=== PATIENT | male | born 1965 | race Caucasian/White ===

== ENCOUNTER 2018-03-14 15:39 | Emergency (ER) | payer MEDICAID ==
[~2018-03-14] VITALS: Ht 175.3 cm; Wt 88.0 kg
[2018-03-14 15:53] VITALS: BP 135/85
[2018-03-14 16:16] LABS: BASOPHILS # (AUTO) 0.1 X10'3 (0-0.2); BASOPHILS % (AUTO) 0.6 % (0-1); EOSINOPHILS # (AUTO) 0.4 X10'3 (0-0.9); EOSINOPHILS % (AUTO) 4.6 % (0-6); HEMATOCRIT 44.2 % (42.0-52.0); HEMOGLOBIN 15.2 g/dl (14.0-17.9); LYMPHOCYTES # (AUTO) 1.3 X10'3 (1.1-4.8); LYMPHOCYTES % (AUTO) 16.6 % (21-51); MEAN CORPUSCULAR HEMOGLOBIN 31.3 PG (27.0-31.0); MEAN CORPUSCULAR HGB CONC 34.4 % (33.0-36.5); MEAN PLATELET VOLUME 9.8 FL (7.4-10.4); MONOCYTES # (AUTO) 0.6 X10'3 (0-0.9); MONOCYTES % (AUTO) 7.7 % (2-12); NEUTROPHILS # (AUTO) 5.6 X10'3 (1.8-7.7); NEUTROPHILS % (AUTO) 70.5 % (42-75); PLATELET COUNT 228 X10'3 (140-440); RED BLOOD COUNT 4.86 X10'6 (4.70-6.10); RED CELL DISTRIBUTION WIDTH 13.6 % (11.5-14.5)
[2018-03-14 16:31] LABS: ALANINE AMINOTRANSFERASE 31 U/L (12-78); ALBUMIN 3.9 G/DL (3.4-5.0); ALBUMIN/GLOBULIN RATIO 1.1 (1.1-1.5); ALKALINE PHOSPHATASE 124 IU/L (46-116); ANION GAP 10 (8-16); ASPARTATE AMINO TRANSFERASE 13 U/L (10-37); BILIRUBIN,TOTAL 1.5 MG/DL (0.1-1.0); BLOOD UREA NITROGEN 16 MG/DL (7-18); BUN/CREATININE RATIO 12.9 (5.4-32.0); CHLORIDE 103 MMOL/L (99-107); CREATININE 1.24 MG/DL (0.60-1.10); GLUCOSE 109 MG/DL (70-104); POTASSIUM 4.2 MMOL/L (3.5-5.1); SODIUM 142 MMOL/L (135-145); TOTAL CARBON DIOXIDE 28.9 MMOL/L (24-32); TOTAL PROTEIN 7.4 G/DL (6.4-8.2); eGFR 61 ML/MIN
[2018-03-14 16:39] LABS: PARTIAL THROMBOPLASTIN TIME 27 SECONDS (22-32); PROTHROMBIN TIME 10.1 SECONDS (9.0-12.0)
[2018-03-14] MEDS ORDERED: furosemide 20MG tablet PO ONE (16:50)
== END 2018-03-14 17:20 | disposition home or self-care (01) ==
LOC: ER 15:40
DX: R06.02 Shortness of breath (principal); I25.2 Old myocardial infarction; Z86.73 Personal history of transient ischemic attack (TIA), and cerebral infarction without residual deficits; I50.9 Heart failure, unspecified; Z88.1 Allergy status to other antibiotic agents; Z88.5 Allergy status to narcotic agent
CPT/HCPCS: 36415; 71045; 80053; 83880; 84484; 85025; 85610; 85730; 93005; 99285

== ENCOUNTER 2020-03-04 14:07 | Emergency (ER) | payer MEDICAID ==
[~2020-03-04] VITALS: Ht 175.3 cm; Wt 90.9 kg
[2020-03-04 15:16] LABS: BASOPHILS # (AUTO) 0.1 X10'3 (0-0.2); EOSINOPHILS # (AUTO) 0.2 X10'3 (0-0.9); EOSINOPHILS % (AUTO) 3.4 % (0-6); HEMATOCRIT 42.2 % (42.0-52.0); HEMOGLOBIN 14.5 g/dl (14.0-17.9); LYMPHOCYTES # (AUTO) 1.5 X10'3 (1.1-4.8); LYMPHOCYTES % (AUTO) 23.4 % (21-51); MEAN CORPUSCULAR HEMOGLOBIN 31.8 PG (27.0-31.0); MEAN CORPUSCULAR HGB CONC 34.3 g/dL (33.0-36.5); MEAN CORPUSCULAR VOLUME 92.8 FL (78-98); MEAN PLATELET VOLUME 9.8 FL (7.4-10.4); MONOCYTES # (AUTO) 0.6 X10'3 (0-0.9); MONOCYTES % (AUTO) 8.8 % (2-12); NEUTROPHILS % (AUTO) 63.4 % (42-75); PLATELET COUNT 219 X10'3 (140-440); RED BLOOD COUNT 4.55 X10'6 (4.70-6.10); RED CELL DISTRIBUTION WIDTH 13.5 % (11.5-14.5); WHITE BLOOD COUNT 6.4 X10'3 (4.5-11.0)
[2020-03-04 15:26] LABS: PARTIAL THROMBOPLASTIN TIME 30 SECONDS (22-32)
[2020-03-04 15:28] LABS: ALANINE AMINOTRANSFERASE 39 U/L (12-78); ALBUMIN 3.9 G/DL (3.4-5.0); ALBUMIN/GLOBULIN RATIO 1.2 (1.1-1.5); ALKALINE PHOSPHATASE 115 IU/L (46-116); ANION GAP 9 (8-16); ASPARTATE AMINO TRANSFERASE 20 U/L (10-37); BILIRUBIN,TOTAL 0.9 MG/DL (0.1-1.0); BLOOD UREA NITROGEN 9 MG/DL (7-18); CHLORIDE 106 MMOL/L (99-107); CREATININE 1.13 MG/DL (0.60-1.10); GLUCOSE 116 MG/DL (70-104); POTASSIUM 4.1 MMOL/L (3.5-5.1); SODIUM 140 MMOL/L (135-145); TOTAL CARBON DIOXIDE 25.3 MMOL/L (24-32); TOTAL PROTEIN 7.1 G/DL (6.4-8.2); eGFR 68 ML/MIN
[2020-03-04 18:13] VITALS: BP 138/87
== END 2020-03-04 18:14 | disposition home or self-care (01) ==
LOC: ER 14:07
DX: R06.00 Dyspnea, unspecified (principal); G89.29 Other chronic pain; M54.9 Dorsalgia, unspecified; I50.9 Heart failure, unspecified; I25.2 Old myocardial infarction; E11.9 Type 2 diabetes mellitus without complications; Z59.0 Homelessness; Z86.73 Personal history of transient ischemic attack (TIA), and cerebral infarction without residual deficits; Z88.5 Allergy status to narcotic agent
CPT/HCPCS: 36415; 71045; 80053; 84484; 85025; 85610; 85730; 93005; 99285

== ENCOUNTER 2020-10-23 06:39 | Emergency (ER) | payer MEDICARE, MEDICAID ==
[~2020-10-23] VITALS: Ht 175.3 cm; Wt 90.9 kg
[2020-10-23] MEDS ORDERED: ibuprofen tablet 400 MG TABLET PO ONE (07:25)
[2020-10-23] MEDS ORDERED: BENZ-16 PO (08:14)
== END 2020-10-23 08:56 | disposition home or self-care (01) ==
LOC: ER 06:40
DX: R07.89 Other chest pain (principal); R05 Cough; R11.0 Nausea; R50.9 Fever, unspecified; Z20.822 Contact with and (suspected) exposure to COVID-19; I25.10 Atherosclerotic heart disease of native coronary artery without angina pectoris; I50.9 Heart failure, unspecified; I25.2 Old myocardial infarction; E11.9 Type 2 diabetes mellitus without complications; Z86.73 Personal history of transient ischemic attack (TIA), and cerebral infarction without residual deficits; Z59.0 Homelessness; Z88.1 Allergy status to other antibiotic agents; Z88.5 Allergy status to narcotic agent; Z79.899 Other long term (current) drug therapy
CPT/HCPCS: 36415; 71045; 87635; 93005; 99285

== ENCOUNTER 2021-08-12 21:30 | Emergency (ER) | payer MEDICARE, MEDICAID ==
[~2021-08-12] VITALS: Ht 175.3 cm; Wt 90.0 kg
[~2021-08-12 21:30] MED LIST: ASPI-1475 PO; ATOR-2 PO; BENZ-49 PO; ESCI20TA39 PO; GABA300C PO; LISI5TAB22 PO
[2021-08-12 23:20] LABS: BASOPHILS # (AUTO) 0.1 X10'3 (0-0.2); EOSINOPHILS # (AUTO) 0.1 X10'3 (0-0.9); HEMOGLOBIN 14.3 g/dl (14.0-17.9); MEAN CORPUSCULAR VOLUME 98.2 FL (78-98); NEUTROPHILS # (AUTO) 7.6 X10'3 (1.8-7.7); WHITE BLOOD COUNT 9.6 X10'3 (4.5-11.0)
[2021-08-12 23:21] LABS: BASOPHILS % (AUTO) 1.2 % (0-1); EOSINOPHILS % (AUTO) 0.8 % (0-6); HEMATOCRIT 43.3 % (42.0-52.0); LYMPHOCYTES # (AUTO) 0.8 X10'3 (1.1-4.8); LYMPHOCYTES % (AUTO) 8.3 % (21-51); MEAN CORPUSCULAR HEMOGLOBIN 32.5 PG (27.0-31.0); MEAN CORPUSCULAR HGB CONC 33.1 g/dL (33.0-36.5); MEAN PLATELET VOLUME 10.2 FL (7.4-10.4); MONOCYTES # (AUTO) 1.1 X10'3 (0-0.9); MONOCYTES % (AUTO) 11.3 % (2-12); NEUTROPHILS % (AUTO) 78.4 % (42-75); PLATELET COUNT 238 X10'3 (140-440); RED BLOOD COUNT 4.41 X10'6 (4.70-6.10); RED CELL DISTRIBUTION WIDTH 16.5 % (11.5-14.5)
[2021-08-12 23:45] LABS: PARTIAL THROMBOPLASTIN TIME 35 SECONDS (22-32)
[2021-08-12 23:55] LABS: ALANINE AMINOTRANSFERASE 267 U/L (12-78); ALKALINE PHOSPHATASE 167 IU/L (46-116); ANION GAP 13 (8-16); ASPARTATE AMINO TRANSFERASE 119 U/L (10-37); BILIRUBIN,DIRECT 0.7 MG/DL (0-0.3); BILIRUBIN,TOTAL 1.6 MG/DL (0.1-1.0); BLOOD UREA NITROGEN 33 MG/DL (7-18); BUN/CREATININE RATIO 19.2 (5.4-32.0); CALCIUM 8.4 MG/DL (8.5-10.1); CHLORIDE 102 MMOL/L (99-107); CREATININE 1.72 MG/DL (0.60-1.10); GLUCOSE 104 MG/DL (70-104); LIPASE < 50 U/L (73-393); POTASSIUM 3.9 MMOL/L (3.5-5.1); SODIUM 140 MMOL/L (135-145); TOTAL CARBON DIOXIDE 24.6 MMOL/L (24-32); eGFR 41 ML/MIN
[2021-08-13 00:47] VITALS: BP 101/69
[2021-08-13 03:30] LABS: CLARITY,URINE CLEAR (Clear); COLOR,URINE YELLOW (Yellow); GLUCOSE, URINE 250 mg/dl (Neg); KETONES,URINE NEGATIVE (Neg); LEUKOCYTE ESTERASE ,URINE NEGATIVE (Neg); NITRITES, URINE NEGATIVE (Neg); OCCULT BLOOD,URINE NEGATIVE (Neg); PROTEIN,URINE NEGATIVE (Neg)
[2021-08-13 03:32] LABS: UA COLLECTION TYPE CLN CATCH MIDSTREAM
[2021-08-13] MEDS ORDERED: HYDR-3965 PO (04:44)
[2021-08-13] MEDS ORDERED: AMOX-422 PO (04:44)
== END 2021-08-13 05:09 | disposition home or self-care (01) ==
LOC: ER 21:32
DX: K62.89 Other specified diseases of anus and rectum (principal); K64.4 Residual hemorrhoidal skin tags; I10 Essential (primary) hypertension; E78.00 Pure hypercholesterolemia, unspecified; I25.10 Atherosclerotic heart disease of native coronary artery without angina pectoris; I11.0 Hypertensive heart disease with heart failure; I50.9 Heart failure, unspecified; I25.2 Old myocardial infarction; E11.9 Type 2 diabetes mellitus without complications; Z86.72 Personal history of thrombophlebitis; F15.90 Other stimulant use, unspecified, uncomplicated; Z59.00 Homelessness unspecified; Z86.73 Personal history of transient ischemic attack (TIA), and cerebral infarction without residual deficits
CPT/HCPCS: 36415; 74176; 80048; 80076; 81003; 83690; 85025; 85610; 85730; 99284

== ENCOUNTER 2021-08-14 22:56 | Emergency (ER) | payer MEDICARE, MEDICAID ==
[~2021-08-14] VITALS: Ht 182.9 cm; Wt 101.1 kg
[~2021-08-14 22:56] MED LIST changes: +AMOX-422 PO; +HYDR-3965 PO
[2021-08-14] MEDS ORDERED: LORazepam 1 MG tablet PO ONE (23:50)
[2021-08-15 01:03] VITALS: BP 126/85
== END 2021-08-15 01:27 | disposition home or self-care (01) ==
LOC: ER 22:56
DX: F41.9 Anxiety disorder, unspecified (principal); K62.89 Other specified diseases of anus and rectum; I25.10 Atherosclerotic heart disease of native coronary artery without angina pectoris; I11.0 Hypertensive heart disease with heart failure; I50.9 Heart failure, unspecified; I25.2 Old myocardial infarction; E11.9 Type 2 diabetes mellitus without complications; E78.00 Pure hypercholesterolemia, unspecified; F15.90 Other stimulant use, unspecified, uncomplicated; Z86.73 Personal history of transient ischemic attack (TIA), and cerebral infarction without residual deficits; Z59.00 Homelessness unspecified; Z88.1 Allergy status to other antibiotic agents; Z88.5 Allergy status to narcotic agent; Z79.2 Long term (current) use of antibiotics; Z79.82 Long term (current) use of aspirin; Z79.899 Other long term (current) drug therapy
CPT/HCPCS: 99283

== ENCOUNTER 2021-08-17 03:37 | Emergency (ER) | payer MEDICARE, MEDICAID ==
[~2021-08-17] VITALS: Ht 177.8 cm; Wt 100.0 kg
[2021-08-17] MEDS ORDERED: cephalexin 250mg capsule PO ONE (03:50)
[2021-08-17 03:53] VITALS: BP 142/107
[2021-08-17] MEDS ORDERED: LORazepam 2 mg/ml vial IM ONE (03:55)
[2021-08-17] MEDS ORDERED: CEPH-585 PO (04:29)
[2021-08-18] MEDS ORDERED: TRAZ-256 PO (17:38)
[2021-08-18] MEDS ORDERED: LOSA25TA96 PO (17:38)
[2021-08-18] MEDS ORDERED: CARV6.253 PO (17:38)
== END 2021-08-17 05:48 | disposition home or self-care (01) ==
LOC: ER 03:38
DX: F41.9 Anxiety disorder, unspecified (principal); N45.4 Abscess of epididymis or testis; I11.0 Hypertensive heart disease with heart failure; I50.9 Heart failure, unspecified; I25.10 Atherosclerotic heart disease of native coronary artery without angina pectoris; E78.00 Pure hypercholesterolemia, unspecified; I25.2 Old myocardial infarction; E11.9 Type 2 diabetes mellitus without complications; F15.90 Other stimulant use, unspecified, uncomplicated; Z86.73 Personal history of transient ischemic attack (TIA), and cerebral infarction without residual deficits; Z59.00 Homelessness unspecified; Z88.2 Allergy status to sulfonamides; Z88.8 Allergy status to other drugs, medicaments and biological substances; Z79.82 Long term (current) use of aspirin; Z79.2 Long term (current) use of antibiotics; Z79.899 Other long term (current) drug therapy
CPT/HCPCS: 99283

== ENCOUNTER 2021-08-18 00:07 | Emergency (ER) | payer MEDICARE, MEDICAID ==
[~2021-08-18] VITALS: Ht 175.3 cm; Wt 99.0 kg
[~2021-08-18 00:07] MED LIST changes: +CEPH-585 PO
[2021-08-18 00:16] VITALS: BP 122/85
[2021-08-18] MEDS ORDERED: furosemide 10 MG/1 ML 10ml inj IV ONE (00:50)
[2021-08-18] MEDS ORDERED: furosemide 20MG tablet PO ONE (01:00)
[2021-08-18] MEDS ORDERED: TRAZ-256 PO (17:38)
[2021-08-18] MEDS ORDERED: LOSA25TA96 PO (17:38)
[2021-08-18] MEDS ORDERED: CARV6.253 PO (17:38)
== END 2021-08-18 01:29 | disposition home or self-care (01) ==
LOC: ER 00:07
DX: F41.9 Anxiety disorder, unspecified (principal); I25.10 Atherosclerotic heart disease of native coronary artery without angina pectoris; I11.0 Hypertensive heart disease with heart failure; I50.9 Heart failure, unspecified; E78.00 Pure hypercholesterolemia, unspecified; I25.2 Old myocardial infarction; F15.90 Other stimulant use, unspecified, uncomplicated; E11.9 Type 2 diabetes mellitus without complications; Z86.73 Personal history of transient ischemic attack (TIA), and cerebral infarction without residual deficits; Z59.00 Homelessness unspecified; Z88.1 Allergy status to other antibiotic agents; Z88.8 Allergy status to other drugs, medicaments and biological substances; Z79.2 Long term (current) use of antibiotics; Z79.899 Other long term (current) drug therapy
CPT/HCPCS: 99283

== ENCOUNTER 2021-08-18 14:10 | Inpatient (IN) | payer MEDICARE, MEDICAID ==
[~2021-08-18] VITALS: Ht 175.3 cm; Wt 100.0 kg
--- NOTE | 2021-08-18 14:39 | NUR ---
KEVEN (MADHAVI) [phone] PLEASE CALL WITH ANY UPDATES OR QUESTIONS
[2021-08-18] MEDS ORDERED: LORazepam 2 mg/ml vial IV ONE (14:55)
[2021-08-18 15:12] LABS: BASOPHILS # (AUTO) 0.1 X10'3 (0-0.2); EOSINOPHILS # (AUTO) 0.1 X10'3 (0-0.9); EOSINOPHILS % (AUTO) 0.6 % (0-6); LYMPHOCYTES # (AUTO) 1.1 X10'3 (1.1-4.8)
[2021-08-18 15:13] LABS: BASOPHILS % (AUTO) 0.8 % (0-1); HEMATOCRIT 47.9 % (42.0-52.0); HEMOGLOBIN 15.7 g/dl (14.0-17.9); LYMPHOCYTES % (AUTO) 10.1 % (21-51); MEAN CORPUSCULAR HEMOGLOBIN 31.7 PG (27.0-31.0); MEAN CORPUSCULAR HGB CONC 32.7 g/dL (33.0-36.5); MEAN CORPUSCULAR VOLUME 96.8 FL (78-98); MEAN PLATELET VOLUME 10.1 FL (7.4-10.4); MONOCYTES % (AUTO) 9.7 % (2-12); NEUTROPHILS # (AUTO) 8.5 X10'3 (1.8-7.7); NEUTROPHILS % (AUTO) 78.8 % (42-75); PLATELET COUNT 274 X10'3 (140-440); RED BLOOD COUNT 4.95 X10'6 (4.70-6.10); RED CELL DISTRIBUTION WIDTH 16.6 % (11.5-14.5); WHITE BLOOD COUNT 10.7 X10'3 (4.5-11.0)
[2021-08-18 15:23] LABS: PARTIAL THROMBOPLASTIN TIME 27 SECONDS (22-32)
[2021-08-18 15:25] LABS: ALANINE AMINOTRANSFERASE 144 U/L (12-78); ALBUMIN 3.6 G/DL (3.4-5.0); ALKALINE PHOSPHATASE 180 IU/L (46-116); ANION GAP 12 (8-16); ASPARTATE AMINO TRANSFERASE 47 U/L (10-37); BLOOD UREA NITROGEN 30 MG/DL (7-18); BUN/CREATININE RATIO 18.3 (5.4-32.0); CHLORIDE 98 MMOL/L (99-107); CREATININE 1.64 MG/DL (0.60-1.10); GLUCOSE 130 MG/DL (70-104); POTASSIUM 3.8 MMOL/L (3.5-5.1); SODIUM 135 MMOL/L (135-145); TOTAL CARBON DIOXIDE 25.1 MMOL/L (24-32); TOTAL PROTEIN 7.2 G/DL (6.4-8.2); eGFR 44 ML/MIN
[2021-08-18] MEDS ORDERED: LIDOcaine 2% 10ml TOPICAL JELLY (Urojet) TP ONE (16:10)
[2021-08-18] MEDS ORDERED: potassium Cl 20 mEq SR tablet PO PRN ×2 (16:25)
[2021-08-18] MEDS ORDERED: potassium CL 10mEq/100ml bag 100 ML IV PRN (16:25)
[2021-08-18] MEDS ORDERED: magnesium 4gm in 100ml NS 100 ML IV PRN (16:25)
[2021-08-18] MEDS ORDERED: PERFLUTREN PROTEIN-A MICROSPHR (Optison) 0.22 MG/ML 3ML VIAL IV ONE (16:25)
[2021-08-18] MEDS ORDERED: magnesium 2GM in 50ml NS 50 ML IV PRN (16:25)
[2021-08-18] MEDS ORDERED: ondansetron/PF 4mg/2ml inj IV PRN (16:25)
[2021-08-18] MEDS ORDERED: acetaminophen 325mg tablet PO PRN (16:25)
[2021-08-18] MEDS ORDERED: magnesium Cl slow-release 64mg tablet PO PRN (16:25)
--- NOTE | 2021-08-18 16:54 | NUR ---
PATIENT ASKED MULTIPLE TIMES TO STAY IN [facility] AND KEEP HOSPITAL GOWN ON. PATIENT UP FROM [facility], WALKING AROUND ROOM, IGNORING STAFFS REQUEST TO STAY IN BED OR CHAIR.
--- NOTE | 2021-08-18 17:21 | NUR ---
HOSPITALIST DR. SYED CALLED AND REQUESTED PAIN MED FOR PT. RECEIVED VO FOR MORPHINE 2 MG IV X1 NOW.
--- NOTE | 2021-08-18 17:28 | NUR ---
PTS SON FAHEEM CALLED AND LEFT CONTACT NUMBER:
[2021-08-18] MEDS ORDERED: morphine 2 MG/ML inj. syringe IV ONE (17:30)
[2021-08-18] MEDS: NYSTATIN CREAM - 30GM TUBE TP SCH (17:30)
[2021-08-18] MEDS ORDERED: CARV6.253 PO (17:38)
[2021-08-18] MEDS ORDERED: LOSA25TA96 PO (17:38)
[2021-08-18] MEDS ORDERED: TRAZ-256 PO (17:38)
[2021-08-18] MEDS: K and/or MAG REPLACEMENT MC SCH (19:41)
[2021-08-18] MEDS: furosemide 10 MG/1 ML 10ml inj IV SCH (19:55)
[2021-08-18] MEDS: heparin, porcine 5000 units/ml vial SQ SCH (19:58)
[2021-08-18] MEDS ORDERED: PERFLUTREN PROTEIN-A MICROSPHR (Optison) 0.22 MG/ML 3ML VIAL IV PRN (20:45)
--- NOTE | 2021-08-18 21:31 | NUR ---
ATTEMPTED TO GIVE REPORT. RN IS BUSY W/ MED PASS
--- NOTE | 2021-08-18 21:49 | NUR ---
REPORT HAS BEEN GIVEN
[2021-08-18 22:00] VITALS: BP 133/106
--- NOTE | 2021-08-18 22:10 | NUR ---
PT ARRIVED FROM ER TO ROOM 3024A. PT HAS BEEN ORIENTED TO THE ROOM. SKIN CHECKED DONE. CALL LIGHT GIVEN. VSS. RECEIVED REPORT FROM PENG FARRELL PRIOR TO PT'S ARRIVAL.
[2021-08-19 02:00] VITALS: BP 118/83
[2021-08-19 06:00] VITALS: BP 136/76
[2021-08-19 06:05] LABS: BASOPHILS # (AUTO) 0.1 X10'3 (0-0.2); EOSINOPHILS # (AUTO) 0.1 X10'3 (0-0.9); EOSINOPHILS % (AUTO) 1.1 % (0-6); HEMOGLOBIN 14.5 g/dl (14.0-17.9); WHITE BLOOD COUNT 9.5 X10'3 (4.5-11.0)
[2021-08-19 06:09] LABS: HEMATOCRIT 43.1 % (42.0-52.0); LYMPHOCYTES % (AUTO) 10.4 % (21-51); MEAN CORPUSCULAR HGB CONC 33.5 g/dL (33.0-36.5); MEAN CORPUSCULAR VOLUME 95.5 FL (78-98); MEAN PLATELET VOLUME 9.6 FL (7.4-10.4); MONOCYTES # (AUTO) 0.9 X10'3 (0-0.9); MONOCYTES % (AUTO) 9.3 % (2-12); NEUTROPHILS # (AUTO) 7.4 X10'3 (1.8-7.7); NEUTROPHILS % (AUTO) 78.2 % (42-75); PLATELET COUNT 215 X10'3 (140-440); RED BLOOD COUNT 4.51 X10'6 (4.70-6.10); RED CELL DISTRIBUTION WIDTH 16.2 % (11.5-14.5)
--- NOTE | 2021-08-19 06:15 | NUR ---
received report from ck cowart
--- NOTE | 2021-08-19 06:20 | NUR ---
Problems reprioritized. Patient report given, questions answered & plan of care reviewed with PENG COTTO.
[2021-08-19 06:31] LABS: ALBUMIN 2.8 G/DL (3.4-5.0); ANION GAP 10 (8-16); BLOOD UREA NITROGEN 29 MG/DL (7-18); BUN/CREATININE RATIO 20.6 (5.4-32.0); CALCIUM 8.8 MG/DL (8.5-10.1); CHLORIDE 107 MMOL/L (99-107); CHOL/HDL RATIO 5.3 (0.00-4.99); CHOLESTEROL 90 MG/DL (0-200); CREATININE 1.41 MG/DL (0.60-1.10); GLUCOSE 103 MG/DL (70-104); HDL CHOLESTEROL 17 MG/DL (35-60); LDL CHOLESTEROL 67 MG/DL (50-100); POTASSIUM 3.6 MMOL/L (3.5-5.1); SODIUM 142 MMOL/L (135-145); TRIGLYCERIDES 81 MG/DL (20-135); eGFR 52 ML/MIN
[2021-08-19 07:28] LABS: ANISOCYTOSIS 1+; LARGE PLATELETS FEW; PLATELET ESTIMATE NORMAL
[2021-08-19] MEDS: NYSTATIN CREAM - 30GM TUBE TP SCH (08:00)
[2021-08-19] MEDS: K and/or MAG REPLACEMENT MC SCH ×2 (08:00→20:00)
[2021-08-19] MEDS: heparin, porcine 5000 units/ml vial SQ SCH ×2 (08:14→21:37)
[2021-08-19] MEDS: furosemide 10 MG/1 ML 10ml inj IV SCH ×2 (08:17→21:36)
[2021-08-19] MEDS ORDERED: pneumococcal 23-VAL P-sac vacc 25 mcg/0.5ml vial IMVAC ONE (10:00)
[2021-08-19] MEDS ORDERED: FLU VACC QS2021-22(6MOS UP)/PF 60 MCG/0.5 ML SYRINGE IM ONE (10:00)
[2021-08-19 11:28] VITALS: BP 133/88
--- NOTE | 2021-08-19 12:33 | NUR ---
after complaining about having extreme anxiety and wanting to have someone help tx his anxiety, I called and obtained an order for po ativan, offered this ativan to pt and pt told me NO and that he is a recovering addict and that he is refusing to take medications for his anxiety, I educated pt about ativan and how it may help w/his anxiety and pt is still refusing medication specifically for his anxiety, continue to monitor pt
[2021-08-19 15:29] VITALS: BP 118/85
[2021-08-19 18:00] VITALS: BP 136/100
--- NOTE | 2021-08-19 18:13 | NUR ---
gave report to ck park
--- NOTE | 2021-08-19 18:20 | NUR ---
Patient in room PCU 3024. I have received report from Laine KHOURY and had the opportunity to ask questions and assume patient care.
[2021-08-19] MEDS: nystatin 15 GM powder TP SCH (21:37)
[2021-08-19] MEDS: gabapentin 300mg capsule PO SCH (21:37)
[2021-08-19] MEDS: atorvastatin 20mg tablet PO SCH (21:38)
[2021-08-19] MEDS: traZODone 50mg tablet PO SCH (21:38)
[2021-08-19] MEDS: LORazepam 1 MG tablet PO PRN (21:42)
[2021-08-19] MEDS: carvedilol 6.25mg tablet PO SCH (21:42)
[2021-08-19 22:00] VITALS: BP 130/102
--- NOTE | 2021-08-20 00:52 | NUR ---
During med pass earlier in shift, this nurse had open all meds and put into med cup and then accidently knocked med cup onto floor. Meds were retrieved and ativan was identified and wasted with the charge nurse. Had to pull all scheduled plus the ativan again.
[2021-08-20 02:00] VITALS: BP 121/74
--- NOTE | 2021-08-20 06:30 | NUR ---
Patient in room PCU 3024. I have received report from Camila KHOURY and had the opportunity to ask questions and assume patient care.
--- NOTE | 2021-08-20 06:30 | NUR ---
Problems reprioritized. Patient report given, questions answered & plan of care reviewed with Nikunj RN.
[2021-08-20 07:10] VITALS: BP 154/71
[2021-08-20] MEDS: K and/or MAG REPLACEMENT MC SCH ×2 (08:00→19:28)
[2021-08-20 08:07] LABS: BASOPHILS % (AUTO) 0.5 % (0-1); EOSINOPHILS # (AUTO) 0.1 X10'3 (0-0.9); EOSINOPHILS % (AUTO) 1.1 % (0-6); HEMATOCRIT 40.4 % (42.0-52.0); HEMOGLOBIN 13.5 g/dl (14.0-17.9); LYMPHOCYTES # (AUTO) 0.8 X10'3 (1.1-4.8); LYMPHOCYTES % (AUTO) 9.3 % (21-51); MEAN CORPUSCULAR HEMOGLOBIN 31.7 PG (27.0-31.0); MEAN CORPUSCULAR HGB CONC 33.3 g/dL (33.0-36.5); MEAN CORPUSCULAR VOLUME 95.2 FL (78-98); MEAN PLATELET VOLUME 9.9 FL (7.4-10.4); MONOCYTES # (AUTO) 0.8 X10'3 (0-0.9); MONOCYTES % (AUTO) 8.6 % (2-12); NEUTROPHILS # (AUTO) 7.3 X10'3 (1.8-7.7); NEUTROPHILS % (AUTO) 80.5 % (42-75); PLATELET COUNT 215 X10'3 (140-440); RED BLOOD COUNT 4.25 X10'6 (4.70-6.10); RED CELL DISTRIBUTION WIDTH 16.4 % (11.5-14.5)
[2021-08-20 08:15] LABS: ALBUMIN 2.6 G/DL (3.4-5.0); ANION GAP 11 (8-16); BLOOD UREA NITROGEN 30 MG/DL (7-18); BUN/CREATININE RATIO 19.9 (5.4-32.0); CALCIUM 8.5 MG/DL (8.5-10.1); CHLORIDE 107 MMOL/L (99-107); CREATININE 1.51 MG/DL (0.60-1.10); GLUCOSE 112 MG/DL (70-104); POTASSIUM 3.8 MMOL/L (3.5-5.1); SODIUM 144 MMOL/L (135-145); TOTAL CARBON DIOXIDE 25.8 MMOL/L (24-32); eGFR 48 ML/MIN
[2021-08-20] MEDS: aspirin 81mg, enteric-coated 1 TAB TABLET.DR PO SCH (08:57)
[2021-08-20] MEDS: gabapentin 300mg capsule PO SCH ×2 (08:57→20:45)
[2021-08-20] MEDS: losartan 25mg tablet PO SCH (08:57)
[2021-08-20] MEDS: LORazepam 1 MG tablet PO PRN ×2 (08:58→20:45)
[2021-08-20] MEDS: ESCITALOPRAM OXALATE 5 MG TABLET PO SCH (08:58)
[2021-08-20] MEDS: carvedilol 6.25mg tablet PO SCH ×2 (08:58→20:54)
[2021-08-20] MEDS: heparin, porcine 5000 units/ml vial SQ SCH ×2 (09:00→20:58)
[2021-08-20] MEDS: furosemide 10 MG/1 ML 10ml inj IV SCH ×2 (09:01→20:57)
[2021-08-20] MEDS: nystatin 15 GM powder TP SCH ×2 (09:07→20:58)
[2021-08-20] MEDS ORDERED: morphine 2 MG/ML inj. syringe IV ONE (10:35)
[2021-08-20] MEDS ORDERED: morphine 2 MG/ML inj. syringe IV PRN (10:40)
[2021-08-20] MEDS ORDERED: HYDROcodone/acetaminophen 5mg/325mg tablet PO PRN (10:40)
[2021-08-20 11:00] VITALS: BP 131/93
[2021-08-20 15:52] VITALS: BP 114/85
[2021-08-20 18:00] VITALS: BP 133/64
--- NOTE | 2021-08-20 18:27 | NUR ---
Problems reprioritized. Patient report given, questions answered & plan of care reviewed with Concepción KHOURY.
[2021-08-20] MEDS: traZODone 50mg tablet PO SCH (20:45)
[2021-08-20] MEDS: atorvastatin 20mg tablet PO SCH (20:46)
--- NOTE | 2021-08-21 05:30 | NUR ---
pt refused his vital signs from 2200 and 0200
[2021-08-21 05:52] LABS: BASOPHILS # (AUTO) 0.1 X10'3 (0-0.2); BASOPHILS % (AUTO) 1.2 % (0-1); EOSINOPHILS # (AUTO) 0.1 X10'3 (0-0.9); EOSINOPHILS % (AUTO) 1.4 % (0-6); HEMATOCRIT 40.6 % (42.0-52.0); HEMOGLOBIN 13.2 g/dl (14.0-17.9); LYMPHOCYTES # (AUTO) 0.5 X10'3 (1.1-4.8); LYMPHOCYTES % (AUTO) 7.7 % (21-51); MEAN CORPUSCULAR HGB CONC 32.5 g/dL (33.0-36.5); MEAN CORPUSCULAR VOLUME 95.5 FL (78-98); MEAN PLATELET VOLUME 10.2 FL (7.4-10.4); MONOCYTES # (AUTO) 0.6 X10'3 (0-0.9); MONOCYTES % (AUTO) 8.8 % (2-12); NEUTROPHILS # (AUTO) 5.3 X10'3 (1.8-7.7); NEUTROPHILS % (AUTO) 80.9 % (42-75); PLATELET COUNT 199 X10'3 (140-440); RED BLOOD COUNT 4.25 X10'6 (4.70-6.10); RED CELL DISTRIBUTION WIDTH 15.9 % (11.5-14.5); WHITE BLOOD COUNT 6.6 X10'3 (4.5-11.0)
[2021-08-21 06:00] VITALS: BP 114/84
[2021-08-21 06:05] LABS: ALBUMIN 2.5 G/DL (3.4-5.0); ANION GAP 8 (8-16); BLOOD UREA NITROGEN 31 MG/DL (7-18); BUN/CREATININE RATIO 21.7 (5.4-32.0); CALCIUM 8.3 MG/DL (8.5-10.1); CHLORIDE 106 MMOL/L (99-107); CREATININE 1.43 MG/DL (0.60-1.10); GLUCOSE 107 MG/DL (70-104); POTASSIUM 3.9 MMOL/L (3.5-5.1); SODIUM 140 MMOL/L (135-145); TOTAL CARBON DIOXIDE 26.1 MMOL/L (24-32); eGFR 51 ML/MIN
--- NOTE | 2021-08-21 07:27 | NUR ---
Patient in room PCU 3024. I have received report from PENG Beebe and had the opportunity to ask questions and assume patient care.
[2021-08-21] MEDS: K and/or MAG REPLACEMENT MC SCH ×2 (08:00→19:39)
[2021-08-21] MEDS: ESCITALOPRAM OXALATE 5 MG TABLET PO SCH (08:05)
[2021-08-21] MEDS: nystatin 15 GM powder TP SCH ×2 (08:05→23:21)
[2021-08-21] MEDS: gabapentin 300mg capsule PO SCH ×2 (08:05→23:18)
[2021-08-21] MEDS: losartan 25mg tablet PO SCH (08:06)
[2021-08-21] MEDS: aspirin 81mg, enteric-coated 1 TAB TABLET.DR PO SCH (08:06)
[2021-08-21] MEDS: heparin, porcine 5000 units/ml vial SQ SCH ×2 (08:07→23:17)
[2021-08-21] MEDS: furosemide 10 MG/1 ML 10ml inj IV SCH ×2 (08:09→23:17)
[2021-08-21] MEDS: carvedilol 6.25mg tablet PO SCH ×2 (08:13→23:18)
[2021-08-21 11:00] VITALS: BP 117/75
[2021-08-21 15:00] VITALS: BP 147/87
[2021-08-21] MEDS: LORazepam 1 MG tablet PO PRN (16:55)
[2021-08-21 18:00] VITALS: BP 128/91
[2021-08-21 20:33] LABS: ALANINE AMINOTRANSFERASE 62 U/L (12-78); ALBUMIN 2.5 G/DL (3.4-5.0); ALBUMIN/GLOBULIN RATIO 0.9 (1.1-1.5); ALKALINE PHOSPHATASE 119 IU/L (46-116); ANION GAP 6 (8-16); ASPARTATE AMINO TRANSFERASE 17 U/L (10-37); BILIRUBIN,TOTAL 1.7 MG/DL (0.1-1.0); BLOOD UREA NITROGEN 34 MG/DL (7-18); CALCIUM 8.4 MG/DL (8.5-10.1); CHLORIDE 104 MMOL/L (99-107); CREATININE 1.48 MG/DL (0.60-1.10); GLUCOSE 102 MG/DL (70-104); SODIUM 139 MMOL/L (135-145); TOTAL CARBON DIOXIDE 28.6 MMOL/L (24-32); TOTAL PROTEIN 5.4 G/DL (6.4-8.2); eGFR 49 ML/MIN
[2021-08-21 22:00] VITALS: BP 132/92
[2021-08-21] MEDS: traZODone 50mg tablet PO SCH (23:18)
[2021-08-21] MEDS: atorvastatin 20mg tablet PO SCH (23:19)
[2021-08-22 02:00] VITALS: BP 99/65
[2021-08-22 06:00] VITALS: BP 110/78
[2021-08-22 07:43] LABS: BASOPHILS # (AUTO) 0.1 X10'3 (0-0.2); BASOPHILS % (AUTO) 0.7 % (0-1); EOSINOPHILS # (AUTO) 0.1 X10'3 (0-0.9); EOSINOPHILS % (AUTO) 0.9 % (0-6); HEMATOCRIT 42.6 % (42.0-52.0); LYMPHOCYTES # (AUTO) 0.7 X10'3 (1.1-4.8); LYMPHOCYTES % (AUTO) 6.2 % (21-51); MEAN CORPUSCULAR HEMOGLOBIN 31.6 PG (27.0-31.0); MEAN CORPUSCULAR HGB CONC 32.9 g/dL (33.0-36.5); MEAN CORPUSCULAR VOLUME 96.3 FL (78-98); MEAN PLATELET VOLUME 10.4 FL (7.4-10.4); MONOCYTES # (AUTO) 1.1 X10'3 (0-0.9); MONOCYTES % (AUTO) 10.6 % (2-12); NEUTROPHILS # (AUTO) 8.7 X10'3 (1.8-7.7); NEUTROPHILS % (AUTO) 81.6 % (42-75); PLATELET COUNT 204 X10'3 (140-440); RED BLOOD COUNT 4.43 X10'6 (4.70-6.10); RED CELL DISTRIBUTION WIDTH 16.6 % (11.5-14.5); WHITE BLOOD COUNT 10.7 X10'3 (4.5-11.0)
[2021-08-22] MEDS: K and/or MAG REPLACEMENT MC SCH (08:00)
[2021-08-22] MEDS: ESCITALOPRAM OXALATE 5 MG TABLET PO SCH (08:01)
[2021-08-22] MEDS: nystatin 15 GM powder TP SCH (08:01)
[2021-08-22 08:02] VITALS: BP_SYST 110
[2021-08-22] MEDS: losartan 25mg tablet PO SCH (08:02)
[2021-08-22] MEDS: aspirin 81mg, enteric-coated 1 TAB TABLET.DR PO SCH (08:02)
[2021-08-22 08:03] LABS: ALBUMIN 2.7 G/DL (3.4-5.0); ANION GAP 8 (8-16); BLOOD UREA NITROGEN 34 MG/DL (7-18); BUN/CREATININE RATIO 22.5 (5.4-32.0); CALCIUM 8.6 MG/DL (8.5-10.1); CHLORIDE 104 MMOL/L (99-107); CREATININE 1.51 MG/DL (0.60-1.10); GLUCOSE 108 MG/DL (70-104); MAGNESIUM 2.2 MG/DL (1.5-2.4); POTASSIUM 4.2 MMOL/L (3.5-5.1); SODIUM 139 MMOL/L (135-145); TOTAL CARBON DIOXIDE 26.7 MMOL/L (24-32); eGFR 48 ML/MIN
[2021-08-22] MEDS: heparin, porcine 5000 units/ml vial SQ SCH (08:03)
[2021-08-22] MEDS: carvedilol 6.25mg tablet PO SCH (08:04)
[2021-08-22] MEDS: gabapentin 300mg capsule PO SCH (08:05)
[2021-08-22] MEDS: furosemide 10 MG/1 ML 10ml inj IV SCH (08:35)
[2021-08-22] MEDS ORDERED: FURO20TA4 PO (10:16)
--- NOTE | 2021-08-22 12:30 | NUR ---
Patient discharge home. Instructions given and read back. Alert and orient. Belonging carried by patient and family. Prescriptions order was sent to the [facility]. 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
== END 2021-08-22 13:40 | disposition home or self-care (01) | DRG 291 ==
LOC: ER 14:11 → ED HOLD 16:24 → PCU 3S 22:05
PROVIDERS: ADMIT Internal Medicine; ATTEND Internal Medicine
DX: I11.0 Hypertensive heart disease with heart failure (principal); I50.23 Acute on chronic systolic (congestive) heart failure; R45.851 Suicidal ideations; N17.9 Acute kidney failure, unspecified; F15.10 Other stimulant abuse, uncomplicated; G47.00 Insomnia, unspecified; F17.210 Nicotine dependence, cigarettes, uncomplicated; F41.0 Panic disorder [episodic paroxysmal anxiety]; I42.7 Cardiomyopathy due to drug and external agent; R74.01 Elevation of levels of liver transaminase levels; R21 Rash and other nonspecific skin eruption; M75.31 Calcific tendinitis of right shoulder; D64.9 Anemia, unspecified; F41.9 Anxiety disorder, unspecified; F32.A Depression, unspecified; E11.9 Type 2 diabetes mellitus without complications; E78.00 Pure hypercholesterolemia, unspecified; I25.10 Atherosclerotic heart disease of native coronary artery without angina pectoris; Z86.73 Personal history of transient ischemic attack (TIA), and cerebral infarction without residual deficits; I25.2 Old myocardial infarction; Z88.1 Allergy status to other antibiotic agents; Z88.5 Allergy status to narcotic agent; Z79.899 Other long term (current) drug therapy; Z79.82 Long term (current) use of aspirin; Z59.00 Homelessness unspecified
CPT/HCPCS: 36415; 71045; 71100; 73030; 76700; 80048; 80053; 80061; 83735; 83880; 84484; 85008; 85025; 85610; 85651; 85730; 87081; 90732; 93005; 93306; 96374; 96375; 99283; 99285; G0378; J1644; J1940; J2060; J2270

== ENCOUNTER 2021-08-28 03:15 | Emergency (ER) | payer MEDICARE, MEDICAID ==
[~2021-08-28] VITALS: Ht 175.3 cm; Wt 98.6 kg
[~2021-08-28 03:15] MED LIST changes: -AMOX-422 PO; -BENZ-49 PO; +CARV6.253 PO; -CEPH-585 PO; +FURO20TA4 PO; -HYDR-3965 PO; -LISI5TAB22 PO; +LOSA25TA96 PO; +TRAZ-256 PO
[2021-08-28 05:19] VITALS: BP 117/85
== END 2021-08-28 05:45 | disposition home or self-care (01) ==
LOC: ER 03:16
DX: F41.9 Anxiety disorder, unspecified (principal); I25.10 Atherosclerotic heart disease of native coronary artery without angina pectoris; I11.0 Hypertensive heart disease with heart failure; I50.9 Heart failure, unspecified; E78.00 Pure hypercholesterolemia, unspecified; I25.2 Old myocardial infarction; E11.9 Type 2 diabetes mellitus without complications; F15.90 Other stimulant use, unspecified, uncomplicated; Z86.73 Personal history of transient ischemic attack (TIA), and cerebral infarction without residual deficits; Z59.00 Homelessness unspecified; Z88.1 Allergy status to other antibiotic agents; Z88.5 Allergy status to narcotic agent; Z79.82 Long term (current) use of aspirin; Z79.899 Other long term (current) drug therapy
CPT/HCPCS: 99281

== ENCOUNTER 2021-08-28 10:34 | Emergency (ER) | payer MEDICARE, MEDICAID ==
[~2021-08-28] VITALS: Ht 175.3 cm; Wt 98.6 kg
[2021-08-28 11:45] VITALS: BP 155/107
--- NOTE | 2021-08-28 16:29 | NUR ---
Patient c/o uncontrollable anxiety and he can't sleep. Patient '[place] I [place] get some [place]. I had a panic attack last night until I got here. I can breath when I'm here. States he was at [facility] and ready to go into surgery and he was so anxious he stopped pre-op and left. Patient has HX of CHF. MAEVE Lau talking to patient about following up with [facility] walk-in on [facility] for group home care. Patient also advised needs a counselor. Patient was a group home drug addict and is recently clean. to give patient medication for sleep. Continue to monitor.
[2021-08-28] MEDS ORDERED: quetiapine 100mg tablet PO STA (16:41)
[2021-08-28] MEDS ORDERED: LORazepam 1 MG tablet PO ONE (16:45)
== END 2021-08-28 17:17 | disposition home or self-care (01) ==
LOC: ER 10:35
DX: F41.0 Panic disorder [episodic paroxysmal anxiety] (principal); F51.04 Psychophysiologic insomnia; I25.10 Atherosclerotic heart disease of native coronary artery without angina pectoris; I11.0 Hypertensive heart disease with heart failure; I50.9 Heart failure, unspecified; E78.00 Pure hypercholesterolemia, unspecified; I25.2 Old myocardial infarction; E11.9 Type 2 diabetes mellitus without complications; F15.90 Other stimulant use, unspecified, uncomplicated; Z86.73 Personal history of transient ischemic attack (TIA), and cerebral infarction without residual deficits; Z59.00 Homelessness unspecified; Z88.5 Allergy status to narcotic agent; Z88.1 Allergy status to other antibiotic agents; Z79.82 Long term (current) use of aspirin; Z79.899 Other long term (current) drug therapy
CPT/HCPCS: 99283

== ENCOUNTER 2021-09-04 03:57 | Inpatient (IN) | payer MEDICARE, MEDICAID ==
[~2021-09-04] VITALS: Ht 175.3 cm; Wt 98.6 kg
[2021-09-04 04:19] VITALS: BP 138/91
[2021-09-04 04:59] LABS: BASOPHILS # (AUTO) 0.1 X10'3 (0-0.2); EOSINOPHILS # (AUTO) 0.1 X10'3 (0-0.9); EOSINOPHILS % (AUTO) 1.6 % (0-6); HEMATOCRIT 41.7 % (42.0-52.0); HEMOGLOBIN 13.4 g/dl (14.0-17.9); LYMPHOCYTES % (AUTO) 11.1 % (21-51); MEAN CORPUSCULAR HEMOGLOBIN 30.8 PG (27.0-31.0); MEAN CORPUSCULAR HGB CONC 32.2 g/dL (33.0-36.5); MEAN CORPUSCULAR VOLUME 95.5 FL (78-98); MEAN PLATELET VOLUME 9.9 FL (7.4-10.4); MONOCYTES # (AUTO) 0.7 X10'3 (0-0.9); MONOCYTES % (AUTO) 7.2 % (2-12); NEUTROPHILS # (AUTO) 7.4 X10'3 (1.8-7.7); NEUTROPHILS % (AUTO) 79.1 % (42-75); PLATELET COUNT 288 X10'3 (140-440); RED BLOOD COUNT 4.37 X10'6 (4.70-6.10); RED CELL DISTRIBUTION WIDTH 17.3 % (11.5-14.5); WHITE BLOOD COUNT 9.4 X10'3 (4.5-11.0)
[2021-09-04 05:13] LABS: ALANINE AMINOTRANSFERASE 58 U/L (12-78); ALBUMIN 2.8 G/DL (3.4-5.0); ALBUMIN/GLOBULIN RATIO 0.8 (1.1-1.5); ALKALINE PHOSPHATASE 144 IU/L (46-116); ANION GAP 10 (8-16); ASPARTATE AMINO TRANSFERASE 33 U/L (10-37); BILIRUBIN,TOTAL 1.8 MG/DL (0.1-1.0); BLOOD UREA NITROGEN 16 MG/DL (7-18); BUN/CREATININE RATIO 12.3 (5.4-32.0); CALCIUM 8.6 MG/DL (8.5-10.1); CHLORIDE 102 MMOL/L (99-107); GLUCOSE 113 MG/DL (70-104); POTASSIUM 3.9 MMOL/L (3.5-5.1); SODIUM 135 MMOL/L (135-145); TOTAL CARBON DIOXIDE 23.2 MMOL/L (24-32); TOTAL PROTEIN 6.1 G/DL (6.4-8.2); eGFR 57 ML/MIN
[2021-09-04] MEDS ORDERED: furosemide 10 MG/1 ML 10ml inj IV ONE (05:45)
[2021-09-04] MEDS ORDERED: magnesium hydroxide 30ml (MOM) UD suspension PO PRN (07:35)
[2021-09-04] MEDS ORDERED: ondansetron/PF 4mg/2ml inj IV PRN (07:35)
[2021-09-04] MEDS ORDERED: morphine 2 MG/ML inj. syringe IV PRN ×2 (07:35)
[2021-09-04] MEDS ORDERED: magnesium Cl slow-release 64mg tablet PO PRN (07:35)
[2021-09-04] MEDS ORDERED: acetaminophen 325mg tablet PO PRN (07:35)
[2021-09-04] MEDS ORDERED: magnesium 2GM in 50ml NS 50 ML IV PRN (07:35)
[2021-09-04] MEDS ORDERED: potassium Cl 20 mEq SR tablet PO PRN ×2 (07:35)
[2021-09-04] MEDS ORDERED: potassium CL 10mEq/100ml bag 100 ML IV PRN (07:35)
[2021-09-04] MEDS ORDERED: magnesium 4gm in 100ml NS 100 ML IV PRN (07:35)
[2021-09-04] MEDS ORDERED: mag hydrox/Alum hydrox/simeth 30ml oral suspension PO PRN (07:35)
[2021-09-04] MEDS ORDERED: carVEDilol 3.125mg tablet PO SCH (07:45)
[2021-09-04] MEDS ORDERED: K and/or MAG REPLACEMENT MC SCH (08:00)
[2021-09-04] MEDS ORDERED: docusate sod 100mg capsule PO SCH (08:00)
--- NOTE | 2021-09-04 08:01 | NUR ---
ASSUMED CARE OF PT. PT PACING IN ROOM, CRYING STATING "IM SICK OF THIS PAIN". I ASKED PT TO RETURN TO BED, AND EXPLAINED THE PLAN OF CARE. PT LEGS ELEVATED TO PROVIDE PAIN RELIEF. IV STARTED AND LAXIS ADMINISTERED. PT DECLINED NARCOTIC PAIN MEDS PER RECOVERING DRUG USER. WILL ADMINISTER PO TYLENOL FOR PAIN CONTROL
[2021-09-04] MEDS ORDERED: carvedilol 6.25mg tablet PO ONE (08:26)
[2021-09-04 09:28] LABS: ETHANOL < 0.010 GM/DL (0.0-0.010)
[2021-09-04 10:07] LABS: URINE AMPHETAMINE SCREEN NEGATIVE (Neg); URINE BARBITUATE SCREEN NEGATIVE (Neg); URINE BENZODIAZEPINES SCREEN NEGATIVE (Neg); URINE CANNABINOID SCREEN NEGATIVE (Neg); URINE COCAINE SCREEN NEGATIVE (Neg); URINE METHADONE SCREEN NEGATIVE (Neg); URINE OPIATE SCREEN NEGATIVE (Neg); URINE PHENCYCLIDINE SCREEN NEGATIVE (Neg)
[2021-09-04] MEDS ORDERED: LORazepam 2 mg/ml vial IV ONE (10:30)
[2021-09-04] MEDS ORDERED: OLANZapine 5mg rapidly disint. tablet PO ONE (10:35)
--- NOTE | 2021-09-04 12:02 | NUR ---
PT PULLED IV NEEDLE, STATED "I WANT TO LEAVE, I DONT WANT TO BE HERE ANYMORE. JUST GIVE ME MY DC PAPERS". i EXPLAINED THAT THERE ARE NO DC PAPERS BECAUSE HE WAS ADMITTED AND LEAING THE HOSPITAL IS AGAINST MEDICAL ADVICE. PT STATED "I DONT CARE, I WANT TO GO." ER MD NOTIFIED, CHARGE NOTIFIED, HOSPITALIST NOTIFIED.
--- NOTE | 2021-09-04 12:15 | NUR ---
SPOKE W/ DR. RODRIGUEZ AND MADE HER AWARE OF PT WANTING TO LEAVE. MD STATED SHE WILL COME DOWN AND TALK TO THE PT AND TO PLEASE ASK PT TO WAIT. PT NOTIFIED THAT MD WANTS TO TALK WITH HIM AND IF HE CAN WAIT. PT RESPONDED "FINE, JUST HURRY. I WANT TO GO."
[2021-09-04] MEDS ORDERED: FURO40TA4 PO (12:22)
[2021-09-04] MEDS ORDERED: SPIR25TA PO (12:22)
[2021-09-04] MEDS ORDERED: RIVA20TA PO (12:22)
--- NOTE | 2021-09-04 12:55 | NUR ---
PT NOT IN ROOM. LEFT AMA
== END 2021-09-04 13:41 | disposition left against medical advice (07) | DRG 293 ==
LOC: ER 03:57 → ED HOLD 07:37
PROVIDERS: ADMIT Internal Medicine; ATTEND Internal Medicine
DX: I11.0 Hypertensive heart disease with heart failure (principal); M79.604 Pain in right leg; E11.9 Type 2 diabetes mellitus without complications; E78.00 Pure hypercholesterolemia, unspecified; M79.605 Pain in left leg; R00.0 Tachycardia, unspecified; F15.90 Other stimulant use, unspecified, uncomplicated; F41.9 Anxiety disorder, unspecified; Z53.29 Procedure and treatment not carried out because of patient's decision for other reasons; I25.10 Atherosclerotic heart disease of native coronary artery without angina pectoris; F17.200 Nicotine dependence, unspecified, uncomplicated; I45.9 Conduction disorder, unspecified; I50.9 Heart failure, unspecified; Z86.73 Personal history of transient ischemic attack (TIA), and cerebral infarction without residual deficits; I25.2 Old myocardial infarction; Z59.00 Homelessness unspecified; Z88.5 Allergy status to narcotic agent; Z88.8 Allergy status to other drugs, medicaments and biological substances
CPT/HCPCS: 36415; 80053; 80305; 80320; 83735; 83880; 84484; 85025; 93005; 96374; 99285; G0378; J1940; J2060

== ENCOUNTER 2021-09-19 10:54 | Emergency (ER) | payer MEDICARE, MEDICAID ==
[~2021-09-19] VITALS: Ht 175.3 cm; Wt 98.0 kg
[~2021-09-19 10:54] MED LIST changes: -ESCI20TA39 PO; -FURO20TA4 PO; +FURO40TA4 PO; -GABA300C PO; +RIVA20TA PO; +SPIR25TA PO
[2021-09-19 11:10] VITALS: BP 125/91
[2021-09-19 12:05] LABS: BASOPHILS # (AUTO) 0.1 X10'3 (0-0.2); EOSINOPHILS # (AUTO) 0.1 X10'3 (0-0.9); EOSINOPHILS % (AUTO) 1.9 % (0-6); HEMATOCRIT 41.3 % (42.0-52.0); HEMOGLOBIN 13.4 g/dl (14.0-17.9); LYMPHOCYTES # (AUTO) 0.8 X10'3 (1.1-4.8); LYMPHOCYTES % (AUTO) 12.3 % (21-51); MEAN CORPUSCULAR HGB CONC 32.5 g/dL (33.0-36.5); MEAN CORPUSCULAR VOLUME 92.2 FL (78-98); MEAN PLATELET VOLUME 9.8 FL (7.4-10.4); MONOCYTES # (AUTO) 0.6 X10'3 (0-0.9); MONOCYTES % (AUTO) 9.7 % (2-12); NEUTROPHILS % (AUTO) 75.1 % (42-75); PLATELET COUNT 246 X10'3 (140-440); RED BLOOD COUNT 4.47 X10'6 (4.70-6.10); RED CELL DISTRIBUTION WIDTH 16.8 % (11.5-14.5); WHITE BLOOD COUNT 6.6 X10'3 (4.5-11.0)
[2021-09-19 12:24] LABS: ALANINE AMINOTRANSFERASE 64 U/L (12-78); ALBUMIN 3.1 G/DL (3.4-5.0); ALKALINE PHOSPHATASE 157 IU/L (46-116); ANION GAP 9 (8-16); ASPARTATE AMINO TRANSFERASE 39 U/L (10-37); BLOOD UREA NITROGEN 20 MG/DL (7-18); BUN/CREATININE RATIO 15.9 (5.4-32.0); CALCIUM 8.5 MG/DL (8.5-10.1); CHLORIDE 103 MMOL/L (99-107); CREATININE 1.26 MG/DL (0.60-1.10); GLUCOSE 113 MG/DL (70-104); POTASSIUM 4.2 MMOL/L (3.5-5.1); SODIUM 136 MMOL/L (135-145); TOTAL CARBON DIOXIDE 24.5 MMOL/L (24-32); TOTAL PROTEIN 6.2 G/DL (6.4-8.2); eGFR 59 ML/MIN
== END 2021-09-19 20:45 | disposition left against medical advice (07) ==
LOC: ER 10:56
DX: R45.1 Restlessness and agitation (principal); Z53.21 Procedure and treatment not carried out due to patient leaving prior to being seen by health care provider
CPT/HCPCS: 36415; 80053; 85025

== ENCOUNTER 2021-09-23 03:28 | Emergency (ER) | payer MEDICARE, MEDICAID ==
[~2021-09-23] VITALS: Ht 182.9 cm; Wt 98.6 kg
[2021-09-23 06:08] LABS: BASOPHILS # (AUTO) 0.1 X10'3 (0-0.2); WHITE BLOOD COUNT 9.3 X10'3 (4.5-11.0)
[2021-09-23 06:09] LABS: BASOPHILS % (AUTO) 1.2 % (0-1); EOSINOPHILS # (AUTO) 0.1 X10'3 (0-0.9); EOSINOPHILS % (AUTO) 1.5 % (0-6); HEMATOCRIT 44.8 % (42.0-52.0); HEMOGLOBIN 14.5 g/dl (14.0-17.9); LYMPHOCYTES # (AUTO) 1.1 X10'3 (1.1-4.8); MEAN CORPUSCULAR HEMOGLOBIN 29.8 PG (27.0-31.0); MEAN CORPUSCULAR HGB CONC 32.4 g/dL (33.0-36.5); MEAN CORPUSCULAR VOLUME 92.2 FL (78-98); MEAN PLATELET VOLUME 9.9 FL (7.4-10.4); MONOCYTES # (AUTO) 0.9 X10'3 (0-0.9); MONOCYTES % (AUTO) 9.9 % (2-12); NEUTROPHILS % (AUTO) 75.4 % (42-75); PLATELET COUNT 249 X10'3 (140-440); RED BLOOD COUNT 4.86 X10'6 (4.70-6.10); RED CELL DISTRIBUTION WIDTH 17.5 % (11.5-14.5)
[2021-09-23 06:23] LABS: ALANINE AMINOTRANSFERASE 50 U/L (12-78); ALBUMIN 3.1 G/DL (3.4-5.0); ALBUMIN/GLOBULIN RATIO 0.8 (1.1-1.5); ALKALINE PHOSPHATASE 171 IU/L (46-116); ANION GAP 12 (8-16); ASPARTATE AMINO TRANSFERASE 39 U/L (10-37); BILIRUBIN,TOTAL 2.2 MG/DL (0.1-1.0); BLOOD UREA NITROGEN 25 MG/DL (7-18); BUN/CREATININE RATIO 17.6 (5.4-32.0); CALCIUM 8.7 MG/DL (8.5-10.1); CHLORIDE 104 MMOL/L (99-107); CREATININE 1.42 MG/DL (0.60-1.10); GLUCOSE 109 MG/DL (70-104); SODIUM 140 MMOL/L (135-145); TOTAL CARBON DIOXIDE 24.1 MMOL/L (24-32); TOTAL PROTEIN 6.8 G/DL (6.4-8.2); eGFR 52 ML/MIN
[2021-09-23] MEDS ORDERED: furosemide 10 MG/1 ML 10ml inj IV ONE (06:25)
[2021-09-23 06:35] LABS: POTASSIUM 4.8 MMOL/L (3.5-5.1)
[2021-09-23 06:47] LABS: ANISOCYTOSIS 1+; GIANT PLATELET FEW; LARGE PLATELETS FEW; PLATELET ESTIMATE NORMAL
[2021-09-23 09:03] VITALS: BP 120/90
== END 2021-09-23 09:11 | disposition home or self-care (01) ==
LOC: ER 03:28
DX: R60.0 Localized edema (principal); N50.89 Other specified disorders of the male genital organs; I25.10 Atherosclerotic heart disease of native coronary artery without angina pectoris; I11.0 Hypertensive heart disease with heart failure; I50.9 Heart failure, unspecified; E78.00 Pure hypercholesterolemia, unspecified; I25.2 Old myocardial infarction; E11.9 Type 2 diabetes mellitus without complications; F17.200 Nicotine dependence, unspecified, uncomplicated; Z59.00 Homelessness unspecified; Z86.73 Personal history of transient ischemic attack (TIA), and cerebral infarction without residual deficits; Z88.1 Allergy status to other antibiotic agents; Z79.82 Long term (current) use of aspirin; Z79.899 Other long term (current) drug therapy
CPT/HCPCS: 36415; 71045; 80053; 83880; 84484; 85008; 85025; 93005; 96374; 99285; J1940

== ENCOUNTER 2021-09-27 07:09 | Emergency (ER) | payer MEDICARE, MEDICAID ==
[~2021-09-27] VITALS: Ht 182.9 cm; Wt 98.6 kg
[2021-09-27 07:11] VITALS: BP 135/105
[2021-09-27 09:36] LABS: BASOPHILS # (AUTO) 0.1 X10'3 (0-0.2); EOSINOPHILS # (AUTO) 0.2 X10'3 (0-0.9); LYMPHOCYTES # (AUTO) 1.1 X10'3 (1.1-4.8); MONOCYTES % (AUTO) 10.1 % (2-12)
[2021-09-27 09:37] LABS: HEMATOCRIT 43.8 % (42.0-52.0); HEMOGLOBIN 14.2 g/dl (14.0-17.9); LYMPHOCYTES % (AUTO) 12.2 % (21-51); MEAN CORPUSCULAR HEMOGLOBIN 29.5 PG (27.0-31.0); MEAN CORPUSCULAR HGB CONC 32.3 g/dL (33.0-36.5); MEAN CORPUSCULAR VOLUME 91.4 FL (78-98); MEAN PLATELET VOLUME 9.9 FL (7.4-10.4); MONOCYTES # (AUTO) 0.9 X10'3 (0-0.9); NEUTROPHILS # (AUTO) 6.9 X10'3 (1.8-7.7); NEUTROPHILS % (AUTO) 74.7 % (42-75); PLATELET COUNT 236 X10'3 (140-440); RED CELL DISTRIBUTION WIDTH 18.1 % (11.5-14.5); WHITE BLOOD COUNT 9.3 X10'3 (4.5-11.0)
[2021-09-27 09:50] LABS: ALANINE AMINOTRANSFERASE 35 U/L (12-78); ALBUMIN 3.2 G/DL (3.4-5.0); ALBUMIN/GLOBULIN RATIO 0.9 (1.1-1.5); ALKALINE PHOSPHATASE 169 IU/L (46-116); ANION GAP 9 (8-16); ASPARTATE AMINO TRANSFERASE 22 U/L (10-37); BILIRUBIN,TOTAL 2.2 MG/DL (0.1-1.0); BLOOD UREA NITROGEN 24 MG/DL (7-18); BUN/CREATININE RATIO 18.9 (5.4-32.0); CALCIUM 8.9 MG/DL (8.5-10.1); CHLORIDE 102 MMOL/L (99-107); CREATININE 1.27 MG/DL (0.60-1.10); GLUCOSE 100 MG/DL (70-104); POTASSIUM 4.2 MMOL/L (3.5-5.1); SODIUM 137 MMOL/L (135-145); TOTAL CARBON DIOXIDE 26.1 MMOL/L (24-32); TOTAL PROTEIN 6.8 G/DL (6.4-8.2); eGFR 59 ML/MIN
== END 2021-09-27 14:41 | disposition left against medical advice (07) ==
LOC: ER 07:09
DX: M79.662 Pain in left lower leg (principal); M79.661 Pain in right lower leg; Z53.21 Procedure and treatment not carried out due to patient leaving prior to being seen by health care provider
CPT/HCPCS: 36415; 80053; 83880; 84484; 85025

== ENCOUNTER 2021-09-29 07:39 | Emergency (ER) | payer MEDICARE, MEDICAID ==
[~2021-09-29] VITALS: Ht 182.9 cm; Wt 98.0 kg
[2021-09-29 07:49] VITALS: BP 127/95
== END 2021-09-29 18:52 | disposition left against medical advice (07) ==
LOC: ER 07:40
DX: R22.40 Localized swelling, mass and lump, unspecified lower limb (principal); Z53.21 Procedure and treatment not carried out due to patient leaving prior to being seen by health care provider

== ENCOUNTER 2021-10-05 08:22 | Emergency (ER) | payer MEDICARE, MEDICAID ==
[~2021-10-05] VITALS: Ht 185.4 cm; Wt 104.0 kg
[~2021-10-05 08:22] MED LIST changes: +ESCI20TA39 PO; +FURO20TA4 PO; +GABA300C PO
[2021-10-05 08:32] VITALS: BP 118/79
[2021-10-05 09:12] LABS: BASOPHILS # (AUTO) 0.1 X10'3 (0-0.2); BASOPHILS % (AUTO) 1.2 % (0-1); EOSINOPHILS % (AUTO) 1.9 % (0-6); HEMATOCRIT 45.3 % (42.0-52.0); LYMPHOCYTES # (AUTO) 0.9 X10'3 (1.1-4.8); MEAN CORPUSCULAR VOLUME 90.8 FL (78-98); MONOCYTES # (AUTO) 0.9 X10'3 (0-0.9); NEUTROPHILS # (AUTO) 5.8 X10'3 (1.8-7.7); WHITE BLOOD COUNT 7.9 X10'3 (4.5-11.0)
[2021-10-05 09:14] LABS: EOSINOPHILS # (AUTO) 0.2 X10'3 (0-0.9); HEMOGLOBIN 14.4 g/dl (14.0-17.9); LYMPHOCYTES % (AUTO) 11.7 % (21-51); MEAN CORPUSCULAR HEMOGLOBIN 28.9 PG (27.0-31.0); MEAN CORPUSCULAR HGB CONC 31.8 g/dL (33.0-36.5); MEAN PLATELET VOLUME 9.8 FL (7.4-10.4); MONOCYTES % (AUTO) 11.6 % (2-12); NEUTROPHILS % (AUTO) 73.6 % (42-75); PLATELET COUNT 273 X10'3 (140-440); RED BLOOD COUNT 4.99 X10'6 (4.70-6.10)
[2021-10-05 09:28] LABS: ALANINE AMINOTRANSFERASE 31 U/L (12-78); ALBUMIN 3.4 G/DL (3.4-5.0); ALBUMIN/GLOBULIN RATIO 0.9 (1.1-1.5); ALKALINE PHOSPHATASE 171 IU/L (46-116); ANION GAP 6 (8-16); ASPARTATE AMINO TRANSFERASE 22 U/L (10-37); BILIRUBIN,TOTAL 1.7 MG/DL (0.1-1.0); BLOOD UREA NITROGEN 20 MG/DL (7-18); BUN/CREATININE RATIO 14.9 (5.4-32.0); CALCIUM 8.8 MG/DL (8.5-10.1); CHLORIDE 103 MMOL/L (99-107); CREATININE 1.34 MG/DL (0.60-1.10); GLUCOSE 88 MG/DL (70-104); POTASSIUM 4.1 MMOL/L (3.5-5.1); SODIUM 138 MMOL/L (135-145); TOTAL CARBON DIOXIDE 29.3 MMOL/L (24-32); TOTAL PROTEIN 7.2 G/DL (6.4-8.2); eGFR 55 ML/MIN
[2021-10-05] MEDS ORDERED: LORazepam 1 MG tablet PO ONE (10:05)
[2021-10-05] MEDS ORDERED: MECL-226 PO (11:02)
[2021-10-05] MEDS ORDERED: meclizine 12.5mg tablet PO ONE (11:05)
== END 2021-10-05 11:34 | disposition home or self-care (01) ==
LOC: ER 08:22
DX: F41.9 Anxiety disorder, unspecified (principal); F41.0 Panic disorder [episodic paroxysmal anxiety]; R42 Dizziness and giddiness; R07.89 Other chest pain; I25.10 Atherosclerotic heart disease of native coronary artery without angina pectoris; I11.0 Hypertensive heart disease with heart failure; I50.9 Heart failure, unspecified; E78.00 Pure hypercholesterolemia, unspecified; E11.9 Type 2 diabetes mellitus without complications; Z86.73 Personal history of transient ischemic attack (TIA), and cerebral infarction without residual deficits; Z59.00 Homelessness unspecified; Z56.0 Unemployment, unspecified; Z88.5 Allergy status to narcotic agent; Z88.1 Allergy status to other antibiotic agents; Z79.82 Long term (current) use of aspirin; Z79.899 Other long term (current) drug therapy
CPT/HCPCS: 36415; 71045; 80053; 83880; 84484; 85025; 93005; 99285; J8597

== ENCOUNTER 2022-04-26 07:24 | Inpatient (IN) | payer MEDICARE, MEDICAID ==
[~2022-04-26] VITALS: Ht 182.9 cm; Wt 100.0 kg
[~2022-04-26 07:24] MED LIST changes: -ESCI20TA39 PO; -FURO20TA4 PO; -GABA300C PO; +MECL-226 PO
--- NOTE | 2022-04-26 07:30 | NUR ---
Pt is thrashing around in the bed. Eyes wide open and stating, "I can't breathe." Lips are blue and skin is cool to touch.
[2022-04-26] MEDS ORDERED: LORazepam 1 MG tablet PO ONE (07:45)
--- NOTE | 2022-04-26 08:14 | NUR ---
Difficult IV start. Pt is calm and cooperative at this time.
[2022-04-26] MEDS ORDERED: CARV-50 PO (08:19)
[2022-04-26] MEDS ORDERED: FURO-149 PO (08:19)
[2022-04-26] MEDS ORDERED: GABA300C PO (08:27)
[2022-04-26] MEDS ORDERED: MELA3TAB39 PO (08:27)
[2022-04-26] MEDS ORDERED: ATOR40TA PO (08:27)
[2022-04-26] MEDS ORDERED: POTA-188 PO (08:27)
[2022-04-26 08:37] LABS: BASOPHILS # (AUTO) 0.1 X10'3 (0-0.2); EOSINOPHILS # (AUTO) 0.1 X10'3 (0-0.9); EOSINOPHILS % (AUTO) 0.7 % (0-6); HEMOGLOBIN 15.7 g/dl (14.0-17.9); MONOCYTES # (AUTO) 0.8 X10'3 (0-0.9)
[2022-04-26 08:38] LABS: HEMATOCRIT 48.6 % (42.0-52.0); LYMPHOCYTES # (AUTO) 1.3 X10'3 (1.1-4.8); LYMPHOCYTES % (AUTO) 12.8 % (21-51); MEAN CORPUSCULAR HEMOGLOBIN 32.5 PG (27.0-31.0); MEAN CORPUSCULAR HGB CONC 32.3 g/dL (33.0-36.5); MEAN CORPUSCULAR VOLUME 100.7 FL (78-98); MEAN PLATELET VOLUME 9.4 FL (7.4-10.4); MONOCYTES % (AUTO) 7.7 % (2-12); NEUTROPHILS # (AUTO) 7.8 X10'3 (1.8-7.7); NEUTROPHILS % (AUTO) 77.8 % (42-75); PLATELET COUNT 268 X10'3 (140-440); RED BLOOD COUNT 4.82 X10'6 (4.70-6.10); RED CELL DISTRIBUTION WIDTH 17.6 % (11.5-14.5)
[2022-04-26 09:07] LABS: ALANINE AMINOTRANSFERASE 61 U/L (12-78); ALBUMIN 3.3 G/DL (3.4-5.0); ALBUMIN/GLOBULIN RATIO 0.9 (1.1-1.5); ALKALINE PHOSPHATASE 150 IU/L (46-116); ANION GAP 13 (8-16); ASPARTATE AMINO TRANSFERASE 49 U/L (10-37); BILIRUBIN,TOTAL 1.8 MG/DL (0.1-1.0); BLOOD UREA NITROGEN 49 MG/DL (7-18); BUN/CREATININE RATIO 24.3 (5.4-32.0); CALCIUM 9.1 MG/DL (8.5-10.1); CHLORIDE 102 MMOL/L (99-107); CREATININE 2.02 MG/DL (0.60-1.10); GLUCOSE 178 MG/DL (70-104); MAGNESIUM 2.1 MG/DL (1.5-2.4); PLATELET ESTIMATE NORMAL; POTASSIUM 4.2 MMOL/L (3.5-5.1); SODIUM 138 MMOL/L (135-145); TOTAL CARBON DIOXIDE 23.3 MMOL/L (24-32); TOTAL PROTEIN 6.9 G/DL (6.4-8.2); eGFR 34 ML/MIN
[2022-04-26 09:08] LABS: ANISOCYTOSIS 1+; BURR CELLS 1+
[2022-04-26 09:09] LABS: ETHANOL < 0.010 GM/DL (0.0-0.010)
[2022-04-26 09:21] LABS: CLARITY,URINE SLIGHTLY CLOUDY (Clear); COLOR,URINE YELLOW (Yellow); GLUCOSE, URINE NEGATIVE (Neg); KETONES,URINE NEGATIVE (Neg); LEUKOCYTE ESTERASE ,URINE NEGATIVE (Neg); NITRITES, URINE NEGATIVE (Neg); OCCULT BLOOD,URINE NEGATIVE (Neg); PH,URINE 5.5 (4.8-8.0); PROTEIN,URINE NEGATIVE (Neg)
[2022-04-26 09:23] LABS: UA COLLECTION TYPE VOIDED
--- NOTE | 2022-04-26 09:28 | NUR ---
Pt has fequent episodes of "panic attacks" that last 5-10min. Pt becomes restless, moans, calls out "I can't breathe." O2 sats >96%.
[2022-04-26 09:30] LABS: BACTERIA,URINE NONE SEEN /HPF (Neg); FINE GRANULAR CAST 0-3 /LPF (NEGATIVE); HYALINE CASTS 0-3 /LPF (NEGATIVE); MUCUS STRANDS NONE SEEN /LPF (Neg); RBC,URINE 0-2 /HPF (0-2); SQUAMOUS EPITHELIAL CELL,UR FEW /LPF (FEW); WBC,URINE 0-4 /HPF (0-4)
[2022-04-26 09:47] LABS: URINE AMPHETAMINE SCREEN NEGATIVE (Neg); URINE BARBITUATE SCREEN NEGATIVE (Neg); URINE BENZODIAZEPINES SCREEN NEGATIVE (Neg); URINE CANNABINOID SCREEN NEGATIVE (Neg); URINE COCAINE SCREEN NEGATIVE (Neg); URINE METHADONE SCREEN NEGATIVE (Neg); URINE PHENCYCLIDINE SCREEN NEGATIVE (Neg)
--- NOTE | 2022-04-26 10:00 | NUR ---
Given 250ml of water.
[2022-04-26] MEDS ORDERED: PERFLUTREN PROTEIN-A MICROSPHR (Optison) 0.22 MG/ML 3ML VIAL IV ONE (11:50)
[2022-04-26] MEDS ORDERED: mag hydrox/Alum hydrox/simeth 30ml oral suspension PO PRN (11:50)
[2022-04-26] MEDS ORDERED: magnesium hydroxide 30ml (MOM) UD suspension PO PRN (11:50)
[2022-04-26] MEDS ORDERED: potassium CL 10mEq/100ml bag 100 ML IV PRN (11:50)
[2022-04-26] MEDS ORDERED: magnesium 2GM in 50ml NS 50 ML IV PRN (11:50)
[2022-04-26] MEDS ORDERED: acetaminophen 325mg tablet PO PRN (11:50)
[2022-04-26] MEDS ORDERED: ipratropium/albuterol 3ml nebule NEB PRN (11:50)
[2022-04-26] MEDS ORDERED: ondansetron/PF 4mg/2ml inj IV PRN (11:50)
[2022-04-26] MEDS ORDERED: magnesium 4gm in 100ml NS 100 ML IV PRN (11:50)
[2022-04-26] MEDS ORDERED: POTASSIUM BICARB 20meq eff tab 20 MEQ TABLET.EFF PO PRN ×2 (11:50)
[2022-04-26] MEDS ORDERED: albuterol 2.5 MG/3 ML nebule NEB PRN (11:50)
[2022-04-26] MEDS: nicotine 21mg patch - 24 hr TD SCH (13:15)
--- NOTE | 2022-04-26 14:20 | NUR ---
Pt given a turkey sandwich.
--- NOTE | 2022-04-26 17:12 | NUR ---
robotics testing technician at the bedside.
--- NOTE | 2022-04-26 18:46 | NUR ---
PT REPORT GIVEN TO MORGAN KHOURY
[2022-04-26] MEDS: rivaroxaban 20mg tablet PO SCH (19:51)
[2022-04-26] MEDS: gabapentin 300mg capsule PO SCH (19:51)
[2022-04-26] MEDS: docusate sod 100mg capsule PO SCH (19:51)
[2022-04-26] MEDS: carVEDilol 12.5mg tablet PO SCH (19:52)
[2022-04-26] MEDS: furosemide 40mg tablet PO SCH (19:52)
[2022-04-26 20:00] VITALS: BP 134/88
[2022-04-26] MEDS: K and/or MAG REPLACEMENT MC SCH (20:00)
[2022-04-26] MEDS: traZODone 50mg tablet PO SCH (20:19)
[2022-04-26] MEDS: Melatonin 3mg tablet PO SCH (20:19)
--- NOTE | 2022-04-26 21:35 | NUR ---
pt in rm 1298v joselyn Narvaez is asking for pain med. LE . [phone]
[2022-04-26 22:00] VITALS: BP 96/74
[2022-04-26] MEDS: HYDROcodone/acetaminophen 5mg/325mg tablet PO PRN (22:03)
[2022-04-26] MEDS: LORazepam 2 mg/ml vial IV PRN (23:22)
--- NOTE | 2022-04-27 00:14 | NUR ---
PT IN RM 3014B AMBERFRANKIE MILLER HAS CRITICAL TROPONIN LEVEL OF 227. BISI KHOURY. 3047
[2022-04-27 02:00] VITALS: BP 129/94
[2022-04-27 06:00] VITALS: BP 115/72
[2022-04-27 06:39] LABS: BASOPHILS % (AUTO) 0.3 % (0-1); EOSINOPHILS % (AUTO) 0.1 % (0-6); HEMATOCRIT 43.8 % (42.0-52.0); HEMOGLOBIN 14.4 g/dl (14.0-17.9); LYMPHOCYTES # (AUTO) 0.7 X10'3 (1.1-4.8); LYMPHOCYTES % (AUTO) 10.1 % (21-51); MEAN CORPUSCULAR HEMOGLOBIN 32.6 PG (27.0-31.0); MEAN CORPUSCULAR HGB CONC 32.8 g/dL (33.0-36.5); MEAN CORPUSCULAR VOLUME 99.5 FL (78-98); MEAN PLATELET VOLUME 9.9 FL (7.4-10.4); MONOCYTES # (AUTO) 0.6 X10'3 (0-0.9); MONOCYTES % (AUTO) 8.2 % (2-12); NEUTROPHILS # (AUTO) 5.9 X10'3 (1.8-7.7); NEUTROPHILS % (AUTO) 81.3 % (42-75); PLATELET COUNT 211 X10'3 (140-440); RED CELL DISTRIBUTION WIDTH 17.2 % (11.5-14.5); WHITE BLOOD COUNT 7.2 X10'3 (4.5-11.0)
[2022-04-27 07:06] LABS: ALANINE AMINOTRANSFERASE 101 U/L (12-78); ALBUMIN 2.8 G/DL (3.4-5.0); ALKALINE PHOSPHATASE 125 IU/L (46-116); ANION GAP 14 (8-16); ASPARTATE AMINO TRANSFERASE 81 U/L (10-37); BILIRUBIN,TOTAL 2.1 MG/DL (0.1-1.0); BLOOD UREA NITROGEN 58 MG/DL (7-18); BUN/CREATININE RATIO 35.8 (5.4-32.0); CALCIUM 8.8 MG/DL (8.5-10.1); CHLORIDE 106 MMOL/L (99-107); CREATININE 1.62 MG/DL (0.60-1.10); GLUCOSE 108 MG/DL (70-104); MAGNESIUM 2.1 MG/DL (1.5-2.4); POTASSIUM 4.5 MMOL/L (3.5-5.1); SODIUM 140 MMOL/L (135-145); TOTAL CARBON DIOXIDE 20.5 MMOL/L (24-32); TOTAL PROTEIN 5.7 G/DL (6.4-8.2); eGFR 44 ML/MIN
[2022-04-27] MEDS: K and/or MAG REPLACEMENT MC SCH ×2 (08:00→20:00)
[2022-04-27] MEDS: nicotine 21mg patch - 24 hr TD SCH (08:57)
[2022-04-27] MEDS: spironolactone 25 MG tablet PO SCH (08:58)
[2022-04-27] MEDS: carVEDilol 12.5mg tablet PO SCH ×2 (08:58→20:12)
[2022-04-27] MEDS: gabapentin 300mg capsule PO SCH ×2 (08:59→20:11)
[2022-04-27] MEDS: docusate sod 100mg capsule PO SCH ×2 (08:59→20:10)
[2022-04-27] MEDS: losartan 25mg tablet PO SCH (09:00)
[2022-04-27] MEDS: atorvastatin 20mg tablet PO SCH (09:00)
[2022-04-27] MEDS: furosemide 40mg tablet PO SCH (09:00)
[2022-04-27] MEDS: aspirin 81mg, enteric-coated 1 TAB TABLET.DR PO SCH (09:00)
--- NOTE | 2022-04-27 09:45 | NUR ---
Rod rn reported concerns for possible scabies. Dr Vidal rounding on the unit and informed him of my assessment--patient only has some scattered red spots on his bottom that did not resemble scabies. MD was not concerned for scabies either
--- NOTE | 2022-04-27 13:18 | NUR ---
PAGER ID: [phone] MESSAGE: BARBARA ON [phone], CT ON 1047R AROUND 1400 [address], PT WILL EVAL FOR AMBULATION AND PUT IN NOTES THIS AFTERNOON. THX
[2022-04-27 15:00] VITALS: BP 104/62
[2022-04-27 18:00] VITALS: BP 143/66
[2022-04-27] MEDS: rivaroxaban 20mg tablet PO SCH (18:14)
[2022-04-27] MEDS: Melatonin 3mg tablet PO SCH (20:10)
[2022-04-27] MEDS: traZODone 50mg tablet PO SCH (20:11)
[2022-04-27] MEDS: furosemide 20 MG/2 ML vial IV SCH (20:12)
[2022-04-27 22:00] VITALS: BP 95/60
[2022-04-27] MEDS: LORazepam 2 mg/ml vial IV PRN (23:26)
[2022-04-28 02:00] VITALS: BP 98/73
[2022-04-28 06:00] VITALS: BP 119/85
[2022-04-28 07:45] LABS: BASOPHILS # (AUTO) 0.1 X10'3 (0-0.2); BASOPHILS % (AUTO) 0.9 % (0-1); EOSINOPHILS # (AUTO) 0.1 X10'3 (0-0.9); EOSINOPHILS % (AUTO) 0.7 % (0-6); HEMATOCRIT 43.3 % (42.0-52.0); HEMOGLOBIN 14.1 g/dl (14.0-17.9); LYMPHOCYTES # (AUTO) 1.4 X10'3 (1.1-4.8); LYMPHOCYTES % (AUTO) 17.7 % (21-51); MEAN CORPUSCULAR HEMOGLOBIN 32.3 PG (27.0-31.0); MEAN CORPUSCULAR HGB CONC 32.5 g/dL (33.0-36.5); MEAN CORPUSCULAR VOLUME 99.5 FL (78-98); MEAN PLATELET VOLUME 10.2 FL (7.4-10.4); MONOCYTES # (AUTO) 0.8 X10'3 (0-0.9); MONOCYTES % (AUTO) 9.9 % (2-12); NEUTROPHILS # (AUTO) 5.6 X10'3 (1.8-7.7); NEUTROPHILS % (AUTO) 70.8 % (42-75); PLATELET COUNT 234 X10'3 (140-440); RED BLOOD COUNT 4.35 X10'6 (4.70-6.10); RED CELL DISTRIBUTION WIDTH 17.6 % (11.5-14.5); WHITE BLOOD COUNT 7.9 X10'3 (4.5-11.0)
[2022-04-28] MEDS: K and/or MAG REPLACEMENT MC SCH ×2 (08:00→20:00)
[2022-04-28 08:30] LABS: ALANINE AMINOTRANSFERASE 124 U/L (12-78); ALBUMIN 2.8 G/DL (3.4-5.0); ALBUMIN/GLOBULIN RATIO 0.9 (1.1-1.5); ALKALINE PHOSPHATASE 121 IU/L (46-116); ANION GAP 12 (8-16); ASPARTATE AMINO TRANSFERASE 79 U/L (10-37); BILIRUBIN,TOTAL 1.5 MG/DL (0.1-1.0); BLOOD UREA NITROGEN 53 MG/DL (7-18); BUN/CREATININE RATIO 30.8 (5.4-32.0); CALCIUM 8.6 MG/DL (8.5-10.1); CHLORIDE 104 MMOL/L (99-107); CREATININE 1.72 MG/DL (0.60-1.10); GLUCOSE 139 MG/DL (70-104); MAGNESIUM 2.1 MG/DL (1.5-2.4); SODIUM 140 MMOL/L (135-145); TOTAL CARBON DIOXIDE 24.5 MMOL/L (24-32); TOTAL PROTEIN 5.8 G/DL (6.4-8.2); eGFR 41 ML/MIN
[2022-04-28 08:35] LABS: POTASSIUM 4.7 MMOL/L (3.5-5.1)
[2022-04-28] MEDS: furosemide 20 MG/2 ML vial IV SCH ×2 (09:22→20:36)
[2022-04-28] MEDS: nicotine 21mg patch - 24 hr TD SCH (09:23)
[2022-04-28] MEDS: docusate sod 100mg capsule PO SCH ×2 (09:24→20:33)
[2022-04-28] MEDS: atorvastatin 20mg tablet PO SCH (09:24)
[2022-04-28] MEDS: losartan 25mg tablet PO SCH (09:25)
[2022-04-28] MEDS: carVEDilol 12.5mg tablet PO SCH ×2 (09:25→20:35)
[2022-04-28] MEDS: gabapentin 300mg capsule PO SCH ×2 (09:25→20:33)
[2022-04-28] MEDS: aspirin 81mg, enteric-coated 1 TAB TABLET.DR PO SCH (09:25)
[2022-04-28] MEDS: spironolactone 25 MG tablet PO SCH (09:26)
[2022-04-28 11:00] VITALS: BP 110/75
[2022-04-28] MEDS: LORazepam 2 mg/ml vial IV PRN (14:13)
[2022-04-28 18:00] VITALS: BP 140/95
[2022-04-28] MEDS: rivaroxaban 20mg tablet PO SCH (18:02)
[2022-04-28] MEDS: Melatonin 3mg tablet PO SCH (20:34)
[2022-04-28] MEDS: traZODone 50mg tablet PO SCH (20:34)
[2022-04-28 22:00] VITALS: BP 102/63
[2022-04-29 02:00] VITALS: BP 131/83
[2022-04-29 06:00] VITALS: BP 108/83
[2022-04-29 07:28] LABS: BASOPHILS # (AUTO) 0.1 X10'3 (0-0.2); EOSINOPHILS # (AUTO) 0.1 X10'3 (0-0.9); HEMOGLOBIN 16.4 g/dl (14.0-17.9); LYMPHOCYTES # (AUTO) 1.5 X10'3 (1.1-4.8); LYMPHOCYTES % (AUTO) 15.2 % (21-51); MEAN CORPUSCULAR HEMOGLOBIN 32.7 PG (27.0-31.0); NEUTROPHILS # (AUTO) 7.3 X10'3 (1.8-7.7); RED BLOOD COUNT 5.01 X10'6 (4.70-6.10)
[2022-04-29 07:31] LABS: BASOPHILS % (AUTO) 0.6 % (0-1); EOSINOPHILS % (AUTO) 0.9 % (0-6); HEMATOCRIT 49.8 % (42.0-52.0); MEAN CORPUSCULAR VOLUME 99.3 FL (78-98); MEAN PLATELET VOLUME 10.1 FL (7.4-10.4); MONOCYTES # (AUTO) 1.1 X10'3 (0-0.9); MONOCYTES % (AUTO) 11.3 % (2-12); PLATELET COUNT 236 X10'3 (140-440); RED CELL DISTRIBUTION WIDTH 16.9 % (11.5-14.5); WHITE BLOOD COUNT 10.1 X10'3 (4.5-11.0)
[2022-04-29] MEDS: nicotine 21mg patch - 24 hr TD SCH (07:46)
[2022-04-29] MEDS: aspirin 81mg, enteric-coated 1 TAB TABLET.DR PO SCH (07:47)
[2022-04-29] MEDS: docusate sod 100mg capsule PO SCH (07:47)
[2022-04-29] MEDS: gabapentin 300mg capsule PO SCH (07:47)
[2022-04-29] MEDS: atorvastatin 20mg tablet PO SCH (07:47)
[2022-04-29] MEDS: furosemide 20 MG/2 ML vial IV SCH (07:47)
[2022-04-29] MEDS: spironolactone 25 MG tablet PO SCH (07:47)
[2022-04-29] MEDS: carVEDilol 12.5mg tablet PO SCH (07:48)
[2022-04-29] MEDS: losartan 25mg tablet PO SCH (07:48)
[2022-04-29] MEDS: K and/or MAG REPLACEMENT MC SCH (08:00)
[2022-04-29 08:05] LABS: ALANINE AMINOTRANSFERASE 131 U/L (12-78); ALBUMIN 3.4 G/DL (3.4-5.0); ALKALINE PHOSPHATASE 153 IU/L (46-116); ANION GAP 15 (8-16); ASPARTATE AMINO TRANSFERASE 58 U/L (10-37); BILIRUBIN,TOTAL 1.7 MG/DL (0.1-1.0); BLOOD UREA NITROGEN 50 MG/DL (7-18); CALCIUM 9.1 MG/DL (8.5-10.1); CHLORIDE 104 MMOL/L (99-107); CREATININE 1.39 MG/DL (0.60-1.10); GLUCOSE 102 MG/DL (70-104); MAGNESIUM 2.3 MG/DL (1.5-2.4); POTASSIUM 4.2 MMOL/L (3.5-5.1); SODIUM 140 MMOL/L (135-145); TOTAL CARBON DIOXIDE 21.3 MMOL/L (24-32); TOTAL PROTEIN 6.9 G/DL (6.4-8.2); eGFR 53 ML/MIN
[2022-04-29] MEDS ORDERED: iohexol 350MG/ML 100ml bottle IV ONE ×2 (10:31→10:46)
[2022-04-29] MEDS ORDERED: furosemide 20 MG/2 ML vial IV ONE (11:50)
[2022-04-29] MEDS ORDERED: DOBUTamine-DoBUTrex 500mg/D5W 250 ML IV SCH (11:50)
[2022-04-29 12:10] VITALS: BP 114/84
[2022-04-29] MEDS: HYDROcodone/acetaminophen 5mg/325mg tablet PO PRN (12:10)
[2022-04-29] MEDS ORDERED: CARV-50 PO (12:59)
[2022-04-29] MEDS ORDERED: LOSA25TA96 PO (12:59)
[2022-04-29] MEDS ORDERED: MELA3TAB39 PO (12:59)
[2022-04-29] MEDS ORDERED: ATOR40TA PO (12:59)
[2022-04-29] MEDS ORDERED: FURO-149 PO (12:59)
[2022-04-29] MEDS ORDERED: RIVA20TA PO (12:59)
[2022-04-29] MEDS ORDERED: GABA300C PO (12:59)
[2022-04-29] MEDS ORDERED: SPIR25TA PO (12:59)
[2022-04-29] MEDS ORDERED: TRAZ-256 PO (12:59)
[2022-04-29] MEDS ORDERED: NICO-687 TD (12:59)
[2022-04-29] MEDS ORDERED: ASPI-1475 PO (12:59)
[2022-04-29 16:00] VITALS: BP 98/73
--- NOTE | 2022-04-29 17:32 | NUR ---
Patient cleared for discharge. Patient aox3, vitals stable, denies pain. IV discontinued and tele removed and returned. Patient gathered all belongings. Patient verbalized understanding of discharge instructions and prescriptions. Patient's son came to pick patient up to transport home
[2022-04-29] MEDS ORDERED: furosemide 20 MG/2 ML vial IV SCH (20:00)
--- NOTE | 2022-05-05 15:22 | NUR ---
Case Management DC follow up: Telephoned Patient;no answer.Unable to leave message at this time; VM is full'
== END 2022-04-29 17:10 | disposition home or self-care (01) | DRG 64 ==
LOC: ER 07:24 → ED HOLD 11:54 → EDBEDREQ 18:26 → PCU 3S 19:00
PROVIDERS: ADMIT Family Medicine; ATTEND Family Medicine
PROC: B3251ZZ Computerized Tomography (CT Scan) of Bilateral Common Carotid Arteries using Low Osmolar Contrast (ICD-10-PCS; principal; 2022-04-29)
PROC: B32G1ZZ Computerized Tomography (CT Scan) of Bilateral Vertebral Arteries using Low Osmolar Contrast (ICD-10-PCS; 2022-04-29)
PROC: B32R1ZZ Computerized Tomography (CT Scan) of Intracranial Arteries using Low Osmolar Contrast (ICD-10-PCS; 2022-04-29)
PROC: B3281ZZ Computerized Tomography (CT Scan) of Bilateral Internal Carotid Arteries using Low Osmolar Contrast (ICD-10-PCS; 2022-04-29)
DX: I63.89 Other cerebral infarction (principal); I21.A1 Myocardial infarction type 2; I50.23 Acute on chronic systolic (congestive) heart failure; N17.0 Acute kidney failure with tubular necrosis; I13.0 Hypertensive heart and chronic kidney disease with heart failure and stage 1 through stage 4 chronic kidney disease, or unspecified chronic kidney disease; I42.9 Cardiomyopathy, unspecified; R47.01 Aphasia; F41.0 Panic disorder [episodic paroxysmal anxiety]; E78.00 Pure hypercholesterolemia, unspecified; F15.10 Other stimulant abuse, uncomplicated; F17.210 Nicotine dependence, cigarettes, uncomplicated; I08.1 Rheumatic disorders of both mitral and tricuspid valves; Z66 Do not resuscitate; I25.10 Atherosclerotic heart disease of native coronary artery without angina pectoris; F32.A Depression, unspecified; R06.03 Acute respiratory distress; E11.22 Type 2 diabetes mellitus with diabetic chronic kidney disease; N18.9 Chronic kidney disease, unspecified; I25.2 Old myocardial infarction; Z79.01 Long term (current) use of anticoagulants; Z79.82 Long term (current) use of aspirin; Z79.899 Other long term (current) drug therapy; Z82.49 Family history of ischemic heart disease and other diseases of the circulatory system; Z83.3 Family history of diabetes mellitus; Z86.718 Personal history of other venous thrombosis and embolism; Z86.73 Personal history of transient ischemic attack (TIA), and cerebral infarction without residual deficits; Z91.19 Patient's noncompliance with other medical treatment and regimen; Z95.5 Presence of coronary angioplasty implant and graft; Z56.0 Unemployment, unspecified; Z59.00 Homelessness unspecified; Z88.5 Allergy status to narcotic agent; Z88.8 Allergy status to other drugs, medicaments and biological substances; Z71.6 Tobacco abuse counseling; Z71.51 Drug abuse counseling and surveillance of drug abuser
CPT/HCPCS: 36415; 70250; 70450; 70496; 70498; 70551; 71045; 80053; 80305; 80320; 81001; 83735; 83880; 84484; 85008; 85025; 87081; 92508; 92616; 93005; 93306; 93880; 94640; 94760; 97116; 97161; 97530; 99285; A4615; A6250; G0378; J1940; J2060; J3490; Q9967

== ENCOUNTER 2022-04-30 04:59 | Emergency (ER) | payer MEDICARE, MEDICAID ==
[~2022-04-30] VITALS: Ht 182.9 cm; Wt 100.0 kg
[~2022-04-30 04:59] MED LIST changes: -ATOR-2 PO; +ATOR40TA PO; +CARV-50 PO; -CARV6.253 PO; +FURO-149 PO; -FURO40TA4 PO; +GABA300C PO; -MECL-226 PO; +MELA3TAB39 PO; +NICO-687 TD
[2022-04-30 05:03] VITALS: BP 121/96
[2022-04-30] MEDS ORDERED: furosemide 20MG tablet PO ONE (06:35)
[2022-04-30] MEDS ORDERED: LORazepam 1 MG tablet PO ONE (06:35)
[2022-04-30] MEDS ORDERED: rivaroxaban 20mg tablet PO SCH (06:35)
[2022-04-30] MEDS ORDERED: carVEDilol 12.5mg tablet PO SCH (08:00)
== END 2022-04-30 07:09 | disposition home or self-care (01) ==
LOC: ER 04:59
DX: F41.9 Anxiety disorder, unspecified (principal); I50.9 Heart failure, unspecified; E78.00 Pure hypercholesterolemia, unspecified; F17.200 Nicotine dependence, unspecified, uncomplicated; Z56.0 Unemployment, unspecified; Z59.00 Homelessness unspecified; F15.10 Other stimulant abuse, uncomplicated; Z88.1 Allergy status to other antibiotic agents; Z88.5 Allergy status to narcotic agent; Z79.82 Long term (current) use of aspirin; Z79.899 Other long term (current) drug therapy
CPT/HCPCS: 99284

== ENCOUNTER 2025-07-11 09:11 | Emergency (ER) | payer MEDICARE, MEDICAID ==
[~2025-07-11] VITALS: Ht 175.3 cm; Wt 96.0 kg
[~2025-07-11 09:11] MED LIST changes: +LOSA-415 PO; -LOSA25TA96 PO
[2025-07-11 09:18] VITALS: TEMP 97.6
--- NOTE | 2025-07-11 09:36 | RADIOLOGY REPORT ---
CHEST RADIOGRAPH Indication: CP Technique: Single frontal view of the chest was obtained COMPARISON: None FINDINGS: Lines and Tubes: None Lungs: Clear Pleura: No effusion. No pneumothorax. Cardiomediastinal contours: Unremarkable Bones: Unremarkable IMPRESSION: No acute disease.
[2025-07-11 10:19] LABS: MEAN PLATELET VOLUME 10.3 FL (7.4-10.4); RED CELL DISTRIBUTION WIDTH 14.0 % (11.5-14.5)
--- NOTE | 2025-07-11 10:37 | Physician Documentation ---
History of Present Illness ~ Chief Complaint: Chest Pain Stated Complaint: CP Time Seen by MD: 10:18 Primary Medical Doctor: Florence perry Mode of Arrival: POV HPI 60-year-old male presents to the ED with a complaint of sternal chest pain x1 day.. States that he had an echocardiogram done yesterday at [facility] and was advised to go to his doctor's this morning. Doctor sent him to the ED due to his chest pain in concerns over potential IA.. The patient states that he has a history of heart attacks. Denies any shortness of breath. He thinks that he is just stressed out and that what was causing his pain Day of Onset: Jul 11, 2025 Medication Reconciliation Allergies: Coded Allergies: Erythromycin Lactobionate (Verified Allergy, Unknown, 07/11/25) codeine (Verified Allergy, Unknown, 07/11/25) Scheduled Aspirin (Aspirin EC), 1 TAB PO DAILY Atorvastatin Calcium* (Lipitor*), 1 TAB PO DAILY Carvedilol* (Coreg*), 2 TABLET PO BID Furosemide (Lasix), 40 MG PO BID Gabapentin (Neurontin), 300 MG PO BID Losartan Potassium* (Cozaar*), 1 TAB PO DAILY Melatonin (Melatonin), 4 TAB PO HS Nicotine 21 MG Patch* (Habitrol 21 MG Patch*), 1 PATCH TD DAILY Rivaroxaban (Xarelto), 1 TAB PO QDD Spironolactone (Aldactone), 1 TAB PO DAILY Trazodone HCl (Trazodone HCl), 1 TAB PO HS Past Medical History Past Medical History: CVA/TIA/Stroke, Coronary Artery Disease, Congestive Heart Failure, High Cholesterol, Hypertension, Myocardial Infarction, Diabetes, Anxiety Past Surgical History: noncontributory Patient History: Peripheral vascular disease MOTHER Drug Use: methamphetamine Lives In: Homeless Occupation: unemployed Review of Systems All Other Systems at this time: Reviewed and Negative ROS As stated above in the HPI, otherwise all systems are reviewed and negative. Physical Exam Vital Signs: Temperature: 97.6, Source: Temporal, Heart Rate: 92, Respiratory Rate: 12, BP: 134/88, Pulse Oximetry: 94, Weight: 96.000 Oxygen Flow Rate: 0 Physical Exam General: Alert, no apparent distress. HEENT: PERRL, EOMI, no injection, moist mucous membranes. Neck: Full range of motion. Respiratory: Lungs clear, no respiratory distress. Chest: No accessory muscle use. Cardiovascular: Regular rate and rhythm, no murmurs. Gastrointestinal: Soft, nontender, nondistended. Bowels sounds present. Extremities: Normal range of motion, no deformity. Neurologic: Oriented x4. Psychiatric: Normal mood and affect. Skin: Normal color, warm and dry. No edema, no ecchymosis. Progress Results/Orders Results/Orders Vital Signs 07/11/25 07/11/25 07/11/25 07/11/25 09:18 10:20 11:13 12:37 Temp 97.6 Pulse 77 92 87 76 Resp 18 12 16 15 B/P (MAP) 158/107 134/88 (103) 122/80 (94) 101/73 (82) Pulse Ox 95 94 99 100 O2 Flow Rate 0 0 0 Laboratory Tests Test 07/11/25 10:12 07/11/25 12:05 White Blood Count 10.2 Red Blood Count 5.06 Hemoglobin 17.2 Hematocrit 50.1 Mean Corpuscular Volume 99.0 H Mean Corpuscular Hemoglobin 33.9 H Mean Corpuscular Hemoglobin Concent 34.2 Red Cell Distribution Width 14.0 Platelet Count 211 Mean Platelet Volume 10.3 Neutrophils (%) (Auto) 64.5 Lymphocytes (%) (Auto) 21.0 Monocytes (%) (Auto) 9.7 Eosinophils (%) (Auto) 3.6 Basophils (%) (Auto) 1.2 H Neutrophils # (Auto) 6.6 Lymphocytes # (Auto) 2.1 Monocytes # (Auto) 1.0 H Eosinophils # (Auto) 0.4 Basophils # (Auto) 0.1 CBC Comment Sodium Level 139 Potassium Level 4.5 Chloride Level 100 Carbon Dioxide Level 30.4 Anion Gap 9 Blood Urea Nitrogen 15 Creatinine 1.28 H Estimated GFR/1.73 m2 58 BUN/Creatinine Ratio 11.7 Glucose Level 99 Calcium Level 9.4 Troponin I High Sensitivity 25 23 Pro-B-Type Natriuretic Peptide 2972 H Albumin 4.0 Chemistry Comments Troponin I High Sens Percent Delta 8 Troponin I Hi Sens Absolute Change -2 Medical Decision Making Additional information obtaine: old records Findings Patient has been in no acute distress throughout his stay in the ED. He has no current evidence of a cardiac event. Been 2- troponins. In his pro BNP is lower than it has been previously. Does not present as though he short of breath.. On reassuring lab values negative x-ray per my interpretation I assume he was sent here based on ECG changes. He had normal sinus rhythm an EKG that has suspicious for a bundle branch block with a rate of 97. This appears to be a new finding however he does not present with any acute cardiac concerns I recommend that he follows up with a his supervisor grips's for further eval Heart Score: 3 Differential Dx:Considerations: Include: angina, aortic dissection, chest wall pain, cholelithiasis, CHF, costochondritis, esophageal reflux/spasm, gastritis, herpes zoster, myocardial infarction, pericarditis, pleuritis, pancreatitis, pneumonia, pneumothorax, pulmonary embolus, other Departure Disposition: HOME / SELF CARE / HOMELESS Impression: Primary Impression: Anxiety Additional Impression: Chest wall pain Condition: Stable Discharge Instructions: Nonspecific Chest Pain, Adult Referrals: NO PRIMARY CARE PROVIDER (PCP) Signature Scribe Signature: t Attestation: Scribed for Arnoldo Saldaña Diabetes Educator by Arnoldo Durant NP . 07/11/25 18:06 ARNOLDO SALDAÑA NP Jul 11, 2025 10:37
[2025-07-11 10:50] LABS: CREATININE 1.28 MG/DL (0.60-1.10); PRO BRAIN NATRIURETIC PEPTIDE 2972 PG/ML (0-125); TOTAL CARBON DIOXIDE 30.4 MMOL/L (24-32); eCRCL 62 ML/MIN; eGFR 58 ML/MIN
[2025-07-11 12:37] VITALS: BP 101/73; PULSE 76; RESP 15; O2SAT 100
--- NOTE | 2025-07-11 15:54 | ELECTROCARDIOGRAPH REPORT ---
[facility] Test Date: 2025-07-11 Test Time: 09:15:02 Pat Name: ANGELA KAYE Department: EMERGENCY ROOM Room: Gender: M Chaser Apprentice: BÁRBARA : 1965 Requested By: UCHE CORONADO Order Number: [id number] Reading MD: Measurements Intervals [place] Rate: 97 P: 67 MI: 171 QRS: 72 QRSD: 162 T: -85 QT: 388 QTc: 493 Interpretive Statements Sinus rhythm Right atrial enlargement Probable left ventricular hypertrophy Borderline prolonged QT interval Please click the below link to view image of tracing.
== END 2025-07-11 12:58 | disposition home or self-care (01) ==
LOC: ER 09:12
DX: F41.9 Anxiety disorder, unspecified (principal); R07.89 Other chest pain; E11.51 Type 2 diabetes mellitus with diabetic peripheral angiopathy without gangrene; E78.00 Pure hypercholesterolemia, unspecified; I11.0 Hypertensive heart disease with heart failure; I25.10 Atherosclerotic heart disease of native coronary artery without angina pectoris; I25.2 Old myocardial infarction; Z86.73 Personal history of transient ischemic attack (TIA), and cerebral infarction without residual deficits; Z88.5 Allergy status to narcotic agent; Z88.6 Allergy status to analgesic agent; Z88.8 Allergy status to other drugs, medicaments and biological substances
CPT/HCPCS: 36415; 71045; 80048; 83880; 84484; 85025; 93005; 99285